=== PATIENT | female | born 1985 | race Two or more races ===

== ENCOUNTER 2020-08-10 11:14 | Emergency (ER) | payer MEDICAID, SELFPAY ==
[2020-08-10 11:27] VITALS: BP 113/65; PULSE 67; RESP 18; TEMP 36.4; O2SAT 99; BMI 27.4
--- NOTE | 2020-08-10 11:35 | CT_ITS ---
EXAMINATION: CT FACIAL BONES WITH CONTRAST CLINICAL INFORMATION: Left facial swelling. COMPARISON: None available. TECHNIQUE: Multidetector CT acquisition of the maxillofacial region is obtained following the administration of 85 mL of Omnipaque 350 intravenous contrast without complication. This CT examination was performed using dose optimization techniques as appropriate, variously including the following: *Automated exposure control *Adjustment of mA and/or kV according to patient size (this includes techniques or standardized protocols for targeted exams where dose is matched to indication/reason for exam; i.e. extremities or head) *Use of iterative reconstruction technique FINDINGS: Asymmetric enlargement and heterogeneous enhancement of accessory parotid tissue overlying the superficial aspect of the left masseter muscle contiguous with cellulitis extending into the left buccal space. There is also significant periapical lucency adjacent to the root of the left second maxillary premolar contiguous with buccal cortical erosion of the left maxillary ridge. The cellulitic changes in the left face are most likely secondary to a periapical abscess surrounding the left second maxillary premolar which can be correlated with physical exam. Possible secondary parotitis involving the accessory parotid tissue overlying the left masseter muscle. No drainable peripherally enhancing fluid collections within the face. There is also periapical lucency surrounding the mesial buccal root of the right first maxillary molar. TMJs are unremarkable. There is moderate mucosal thickening within the inferior aspect of the left maxillary sinus. The remaining paranasal sinuses and the mastoid air cells are clear. Nasal septum is nearly midline. Retropharyngeal course of the left cervical internal carotid artery. Partially imaged intracranial compartment is unremarkable. CT/CT facial bones w con IMPRESSION: Asymmetric enlargement and heterogeneous enhancement of accessory parotid tissue overlying the superficial aspect of the left masseter muscle contiguous with cellulitis extending into the left buccal space and remainder of the imaged left face. There is also significant periapical lucency adjacent to the root of the left second maxillary premolar contiguous with buccal cortical erosion of the left maxillary alveolar ridge. The cellulitic changes in the left face are most likely secondary to a periapical abscess surrounding the left second maxillary premolar which can be correlated with physical exam. Possible secondary parotitis involving the accessory parotid tissue overlying the left masseter muscle. No drainable peripherally enhancing fluid collections within the face.
--- NOTE | 2020-08-10 11:46 | ED_ITS ---
HPI - General Adult General Chief complaint: General Medical Stated complaint: face swollen Time Seen by Provider: 08/10/20 11:35 Source: patient Mode of arrival: ambulatory History of Present Illness HPI narrative: 34-year-old female with no significant past medical history presenting to the ED complaining of left-sided facial swelling and discomfort since last night. Denies fever, chills, ear pain, dental pain/issues, throat pain/swelling, difficulty swallowing, difficulty breathing, SOB, cough Onset (ago): day(s) Related Data Previous Rx's Medication Instructions Recorded clindamycin HCl 450 mg PO Q8H 10 Days #45 cap 08/10/20 Allergies Allergy/AdvReac Type Severity Reaction Status Date / Time No Known Allergies Allergy Verified 08/10/20 11:30 [No Known Allergies*] Review of Systems Review of Systems: Constitutional: No Weight loss, No Fever, No Chills ENT/Mouth: No Hearing loss, No Ear Pain, No Nasal Congestion,+ Sinus Pain, No Hoarseness, No sore throat, No Rhinorrhea, No Swallowing Difficulty Eyes: No Eye Pain, No Swelling, No Vision Changes Cardiovascular: No Chest Pain, No SOB Respiratory: No Cough Gastrointestinal: No Nausea, No Vomiting Skin: +facial swelling Yes all other systems are reviewed and are negative [facility] Past Medical History Attestation statement: The following information was validated with the patient. Medical History (Updated 08/10/20 @ 15:18 by MINDY Finn) No known health problems Social History Social History Advance Directives: No Advance Directives Information Provided: No Physical Exam Vital Signs: Vital Signs: Last Vital Signs Temp 97.5 F 08/10/20 11:27 Pulse 67 08/10/20 11:27 Resp 18 08/10/20 11:27 BP 113/65 08/10/20 11:27 Pulse Ox 99 08/10/20 11:27 Body Mass Index 27.4 Const: General: cooperative, healthy appearing and comfortable Orientation/consciousness: patient oriented x3 Limitations: no limitations HENMT: Other: Left-sided facial swelling noted with mild tenderness to palpation. No erythema/cellulitis. TMs WNL. Intraoral fair dentition noted, no appreciable dental abscess/cellulitis or gingivitis Head: Yes normal to inspection Ears: hearing grossly normal bilaterally and TM's normal bilaterally General nose exam: Normal external nose present and Normal nares present Face and sinus: Yes sinus tenderness (left) Mouth: Normal oral and palatal mucosa present Teeth and gingiva: fair dentition Throat: Yes posterior oropharynx normal, Yes uvula midline, No peritonsillar mass and No uvular edema Eyes: General: appearance normal, both eyes and all related structures EOM: EOMs intact bilaterally Neck: Neck: Yes normal visual inspection and Yes no meningeal signs Resp: Effort & Inspection: normal respiratory effort and no stridor Cardio: Rate: regular rate Skin: Rashes: no rashes Wounds: no wounds Neuro: General: patient oriented x3 and no meningeal signs Gait exam (Neuro): Normal gait present Extrem: General: Yes normal to inspection Course Course Course Narrative: * No leukocytosis, H&H stable CT facial bones w con IMPRESSION: Asymmetric enlargement and heterogeneous enhancement of accessory parotid tissue overlying the superficial aspect of the left masseter muscle contiguous with cellulitis extending into the left buccal space and remainder of the imaged left face. There is also significant periapical lucency adjacent to the root of the left second maxillary premolar contiguous with buccal cortical erosion of the left maxillary alveolar ridge. The cellulitic changes in the left face are most likely secondary to a periapical abscess surrounding the left second maxillary premolar which can be correlated with physical exam. Possible secondary parotitis involving the accessory parotid tissue overlying the left masseter muscle. No drainable peripherally enhancing fluid collections within the face >> patient given 1st dose of clindamycin today in the ED. No appreciable fluid collection noted. Discussed with patient length she needs to take antibiotics as prescribed, Tylenol/Motrin for pain/swelling and follow-up with a dentist in 2 days. Worrisome signs and symptoms and strict return precautions discussed. She verbalized understanding and feels safe for discharge home Medical Decision Making MDM Narrative Medical decision making narrative: 34-year-old female with no significant past medical history presenting to the ED complaining of left-sided facial swelling and discomfort since last night. On exam VSS, NAD/nontoxic appearing. Physical exam as above. Concern for dental abscess vs edema or sinusitis Plan: Labs facial CT, re-evaluate Lab Data Result diagrams: 08/10/20 12:25 08/10/20 12:26 Labs: Lab Results 08/10/20 08/10/20 08/10/20 Range/Units 12:25 12:25 12:26 WBC 8.8 (4.8-10.8) X10*3/uL RBC 3.74 L (4.20-5.50) X10*6/uL Hgb 10.9 L (12.0-16.0) g/dl Hct 30.2 L (37-47) % MCV 80.7 (80-98) fL MCH 29.1 (27.0-33.0) pg MCHC 36.1 H (31.0-35.0) g/dl RDW 16.0 (11.0-16.0) % Plt Count 335 (160-400) X10*3/uL MPV 9.5 (9.4-12.3) fL Immature Gran % (Auto) 0.2 (0.0-0.4) % Neut % (Auto) 68.9 (45-73) % Lymph % (Auto) 21.7 (20-40) % Ellsworth % (Auto) 7.4 (2-11) % Eos % (Auto) 1.2 (0-4) % Baso % (Auto) 0.6 (0-2) % Lymph # (Auto) 1.9 (1.2-4.9) X10*3/uL Ellsworth # (Auto) 0.7 (0.1-1.2) X10*3/uL Eos # (Auto) 0.1 (0.0-0.4) X10*3/uL Baso # (Auto) 0.1 (0.0-0.2) X10*3/uL Abs Immat Gran (auto) 0.02 (0.00-0.03) X10*3/uL Absolute Neuts (auto) 6.1 (2.0-8.3) X10*3/uL Absolute Nucleated RBC 0.000 (0.0-0.012) X10*3/uL Nucleated RBC % (auto) 0.0 (0.0-0.2) /100WBC Hold Blue Top SEE NOTE Sodium 139 (135-145) mmol/L Potassium 3.7 (3.3-5.1) mmol/l Chloride 107 (96-108) mmol/L Carbon Dioxide 24 (22-29) mmol/L Anion Gap 12 (12-20) BUN 8 L (9-16) mg/dL Creatinine 0.80 (0.5-1.4) mg/dL Estim Creat Clear Calc 102.2 Estimated GFR > 60 Random Glucose 90 (60-115) mg/dL Calcium 8.6 (8.4-10.2) mg/dL Discharge Plan Discharge Clinical Impression: Facial cellulitis Patient Disposition: Home, Self-Care Instructions: Cellulitis (ED) Additional Instructions: Your blood work is reassuring today in the emergency department however your CT scan shows cellulitis of your phase. This is most likely coming from an abscess around 1 of her molars. There is no area that can be drained at this time, you need to have very close follow-up with a dentist in the next 2 days. Clindamycin as an antibiotic, take as prescribed. In addition take Tylenol and Motrin every 4-6 hours for pain/swelling. If you at all develops fever, gera segudno is worsening, you have drainage from any of her teeth, have swelling in her mouth or difficulty swallowing return to the ED Prescriptions: New clindamycin HCl 300 mg capsule 450 mg PO Q8H 10 Days Qty: 45 RF: 0 Referrals: Jason Gavin DMD [Dentist] - 2 days Sheldon Flores DMD [Dentist] - 2 days Discharge Date/Time: 08/10/20 15:23
[2020-08-10 12:30] LABS: MANUAL DIFF FLAG NO
[2020-08-10 12:33] LABS: Basophils Absolute Auto 0.1 X10*3/uL (0.0-0.2); Basophils Percent Auto 0.6 % (0-2); Eosinophils Absolute Auto 0.1 X10*3/uL (0.0-0.4); Eosinophils Percent Auto 1.2 % (0-4); Hematocrit 30.2 % (37-47); Hemoglobin 10.9 g/dl (12.0-16.0); Imm Gran Abs Auto 0.02 X10*3/uL (0.00-0.03); Imm Gran Pct Auto 0.2 % (0.0-0.4); Lymphocytes Absolute Auto 1.9 X10*3/uL (1.2-4.9); Lymphocytes Percent Auto 21.7 % (20-40); Mean Corpuscular HGB Conc 36.1 g/dl (31.0-35.0); Mean Corpuscular Hemoglobin 29.1 pg (27.0-33.0); Mean Corpuscular Volume 80.7 fL (80-98); Mean Platelet Volume 9.5 fL (9.4-12.3); Monocytes Absolute Auto 0.7 X10*3/uL (0.1-1.2); Monocytes Percent Auto 7.4 % (2-11); Neutrophils Absolute Auto 6.1 X10*3/uL (2.0-8.3); Neutrophils Percent Auto 68.9 % (45-73); Platelet Count 335 X10*3/uL (160-400); Red Blood Count 3.74 X10*6/uL (4.20-5.50); White Blood Count 8.8 X10*3/uL (4.8-10.8)
[2020-08-10 12:57] LABS: Anion Gap 12 (12-20); Blood Urea Nitrogen 8 mg/dL (9-16); Calcium 8.6 mg/dL (8.4-10.2); Carbon Dioxide 24 mmol/L (22-29); Chloride 107 mmol/L (96-108); Creatinine Clr Calc Pharmacy 102.2; Estimated Glomerular Filt Rate > 60; Glucose Random 90 mg/dL (60-115); Potassium 3.7 mmol/l (3.3-5.1); Sodium 139 mmol/L (135-145)
[2020-08-10] MEDS: iohexoL 350 MG/ML 100 ML INFUS..BTL IV (13:51)
== END 2020-08-10 15:23 | disposition home or self-care (01) ==
PROVIDERS: Physician Assistant; Emergency Provider Internal Medicine; PCP Internal Medicine
DX: L03.211 Cellulitis of face (principal); Z79.899 Other long term (current) drug therapy
CPT/HCPCS: 36415; 70487; 80048; 85025; 96365; 99283; 99284; Q9967

== ENCOUNTER 2021-05-20 10:17 | Emergency (ER) | payer MEDICAID, SELFPAY ==
--- NOTE | ~2021-05-20 | XR_ITS ---
EXAMINATION: XR KNEE, LEFT CLINICAL INFORMATION: Posterior left knee pain, unable to bend. No trauma. COMPARISON: No similar priors. TECHNIQUE: Four views of the left knee. FINDINGS: No evidence of acute fractures or malalignment. No significant degenerative changes. No joint effusion or unexpected radiopaque foreign bodies within the soft tissues. XR/XR knee LT 4V IMPRESSION: Normal examination of the left knee.
[2021-05-20 10:27] VITALS: BP 115/62; PULSE 66; RESP 16; TEMP 36.1; O2SAT 100; BMI 29.9
--- NOTE | 2021-05-20 10:41 | ED_ITS ---
HPI - Extremity Problem General Chief complaint: Extremity Injury, Lower Stated complaint: lt knee pain Time Seen by Provider: 05/20/21 10:22 Source: patient Mode of arrival: ambulatory Limitations: no limitations History of Present Illness HPI Narrative: 35-year-old female presenting to the ED with complaints of atraumatic left knee pain at the posterior aspect for the past 4 days worse when she performs flexion and palpates the posterior aspect of her knee. Mild relief with straightening of the knee. Denies any fevers, chills, dizziness, headaches, neck pain/stiffness, chest pain or shortness of breath, dyspnea on exertion, orthopnea, palpitations, abdominal pain, back pain, dysuria, hematuria, lower extremity edema or calf tenderness, any falls or injuries, recent travel or sick contacts, recent surgical procedure, history of DVT or PE, history of PVD, recent illness, history of gout, or immobilization. MD Complaint: extremity pain Onset (ago): day(s) (4 days) Pain Consistency: constant Location: left and knee Quality: aching and constant Radiation: none Relieving factors: nothing Exacerbating factors: other (Flexion and palpation of the posterior aspect of the knee) Associated symptoms: denies other symptoms Related Data Previous Rx's Medication Instructions Recorded clindamycin HCl 300 mg capsule 450 mg PO Q8H 10 Days #45 cap 08/10/20 acetaminophen 300 mg-codeine 30 mg 1 tab PO Q8H PRN #14 tab 05/20/21 tablet ibuprofen 800 mg tablet 800 mg PO Q8H PRN #14 tab 05/20/21 Allergies Allergy/AdvReac Type Severity Reaction Status Date / Time No Known Allergies Allergy Verified 08/10/20 11:30 [No Known Allergies*] Review of Systems Review of Systems: Constitutional : No Weight loss, No Fever, No Chills, No Night Sweats, No Fatigue, No Malaise ENT/Mouth : No Hearing loss, No Ear Pain, No Nasal Congestion, No Sinus Pain, No Hoarseness, No sore throat, No Rhinorrhea, No Swallowing Difficulty Eyes: No Eye Pain, No Swelling, No Redness, No Foreign Body, No Discharge, No Vision Changes Cardiovascular : No Chest Pain, No SOB, No Dyspnea on Exertion, No Orthopnea, No Edema, No Palpitations Respiratory : No Cough, No Sputum, No Wheezing, No Smoke Exposure, No Dyspnea Gastrointestinal : No Nausea, No Vomiting, No Diarrhea, No Constipation, No abdominal Pain, No Hematochezia, No Melena Genitourinary : no irregular bleeding, No Dysuria, No Urinary Frequency, No Hematuria, No Urinary Incontinence, No Urgency, No Flank Pain, No Urinary Flow Changes, No Hesitancy Musculoskeletal : +left knee joint pain, No Myalgias, No Joint Swelling Skin : No Skin Lesions, No rash Neuro : No Weakness, No Numbness, No Paresthesias, No Loss of Consciousness, No Dizziness, No Headache Psych : No Anxiety/Panic, No Depression, No SI/HI/AH/VH, No Social Issues, Heme/Lymph: No Bruising, No Bleeding,No Lymphadenopathy Endocrine : No Polyuria, No Polydipsia, No Temperature Intolerance Yes all other systems are reviewed and are negative [facility] Past Medical History Attestation statement: The following information was validated with the patient. Medical History No known health problems Social History Social History Advance Directives: No Advance Directives Information Provided: No Patient : No Physical Exam Vital Signs: Vital Signs: Last Vital Signs Temp 97.0 F 05/20/21 10:27 Pulse 66 05/20/21 10:27 Resp 16 05/20/21 10:27 BP 115/62 05/20/21 10:27 Pulse Ox 100 05/20/21 10:27 Body Mass Index 29.9 vital signs have been reviewed as normal and appeared to be correct. Blood pressure normal Heart rate normal. Respiration rate normal. Temperature normal. Oxygen saturation normal. Appearance: Alert. Oriented X3. No acute distress. Head: Normal external exam. Normocephalic. Atraumatic. Eyes: PERRLA. EOMI. Conjunctiva and sclera normal. Eyelids normal. ENT: Pharynx normal. Uvula midline. Moist mucous membranes. Neck: Normal inspection. Neck supple. FROM. CVS: Normal heart rate and rhythm. Respiratory: No respiratory distress. Painless inspiration. Skin: Skin warm and dry. Normal skin color. Normal skin turgor. No rashes/lesions/lacerations noted. Extremities: Patient with tenderness to palpation of the left knee at the posterior aspect. No point tenderness is noted. No obvious ligamentous or tendon injury/laxity noted on my exam. Patient has full range of motion althoug h she has pain with flexion. No lower extremity edema or calf tenderness is noted. No signs of infection noted. Otherwise all other Extremities exhibit normal range of motion and nontender. Neuro: Oriented X 3. No motor deficit. No sensory deficit. Reflexes normal. Normal steady gait. No focal neuro deficits noted. Vascular: + radial pulses/+ 2 distal pedal pulses/+2 dorsalis pedis b/l. Normal cap refill. No cyanosis noted to upper extremity nails and lower extremity toes nails. Course Course Course Narrative: 10:40am - 35-year-old female presenting to the ED with complaints of atraumatic left knee pain at the posterior aspect for the past 4 days worse when she performs flexion and palpates the posterior aspect of her knee. Mild relief with straightening of the knee. On exam patient has tenderness palpation to the posterior knee aspect. No obvious ligamentous or tendon injury. No signs of infection. No lower extremity edema or calf tenderness is noted. Therefore at this time x-ray will be ordered of the left knee will re-evaluate. Reevaluation(s) Reevaluation #1: Left knee x-ray negative for any acute processes. We will place an Nixon wrap. Treat symptomatically. Instructed follow-up with her PCP for physical therapy referral or to call Orthopedic if her symptoms persist for longer than 2-3 weeks for possible outpatient MRI. Patient understands agrees with this plan. Time: 11:24 MDM - Extremity (Nontraumatic) Medical Records Attestation: I reviewed the patient's medical records. Imaging Data Left knee x-ray: Attestation: I personally reviewed and interpreted this imaging study as follows: Radiologist's impression: FINDINGS: No evidence of acute fractures or malalignment. No significant degenerative changes. No joint effusion or unexpected radiopaque foreign bodies within the soft tissues.? XR/XR knee LT 4V IMPRESSION: Normal examination of the left knee. Procedures Orthopedic Splinting/Casting Injury #1: Side: left Upper Extremity Immobilizer: Nixon wrap Lower Extremity Injury Location: knee Discharge Plan Discharge Clinical Impression: Strain of left knee Patient Disposition: Home, Self-Care Instructions: Knee Sprain (ED), [place] (ED), Knee Pain (ED) Prescriptions: New ibuprofen 800 mg tablet 800 mg PO Q8H PRN (Reason: pain) Qty: 14 RF: 0 acetaminophen-codeine 300-30 mg tablet 1 tab PO Q8H PRN (Reason: pain) Qty: 14 RF: 0 No Action clindamycin HCl 300 mg capsule 450 mg PO Q8H 10 Days Qty: 45 RF: 0 Referrals: Odalys Amador MD [Primary Care Provider] - 2 days Bruno Brandt MD [Physician] - 2 days Stand Alone Forms: Work/School Release Print Language: Welsh
== END 2021-05-20 11:44 | disposition home or self-care (01) ==
PROVIDERS: Emergency Provider Emergency Medicine Emergency Medical Services; PCP Internal Medicine
DX: S83.92XA Sprain of unspecified site of left knee, initial encounter (principal); M25.562 Pain in left knee; X58.XXXA Exposure to other specified factors, initial encounter; Y93.9 Activity, unspecified; Y92.9 Unspecified place or not applicable; Y99.9 Unspecified external cause status; Z79.899 Other long term (current) drug therapy
CPT/HCPCS: 29505; 73564; 99283

== ENCOUNTER 2021-09-04 12:54 | Outpatient (REF) | payer MEDICAID, SELFPAY ==
--- NOTE | ~2021-09-04 | US_ITS ---
EXAMINATION: ULTRASOUND EXTREMITY NONVASCULAR CLINICAL INFORMATION: Pain in left knee. Rule out Soliz's cyst. COMPARISON: None TECHNIQUE: Doppler color and grayscale evaluation of the soft tissues of the left popliteal fossa FINDINGS: No Soliz's cyst is seen. The popliteal vein and artery are normal in caliber. The popliteal vein compresses without evidence of popliteal vein DVT. US/US extremity nonvascular duarte IMPRESSION: No Soliz's cyst seen.
== END 2021-09-04 12:55 | disposition home or self-care (01) ==
LOC: HO.US 12:54
PROVIDERS: PCP Internal Medicine; Visit Provider Internal Medicine
DX: M25.562 Pain in left knee (principal)
CPT/HCPCS: 76882

== ENCOUNTER 2022-12-02 11:47 | Outpatient (REF) | payer MEDICAID, SELFPAY ==
--- NOTE | ~2022-12-02 | XR_ITS ---
EXAMINATION: XR KNEE, LEFT CLINICAL INFORMATION: Chronic left knee pain COMPARISON: None available. TECHNIQUE: Four views of the left knee. FINDINGS: The tricompartment joint space is normal. No visible acute fracture or dislocation seen.. No bony erosive changes. The soft tissues are normal. XR/XR knee LT 4V IMPRESSION: Unremarkable left knee exam..
== END 2022-12-02 11:48 | disposition home or self-care (01) ==
LOC: HO.XRAY 11:47
PROVIDERS: PCP Internal Medicine; Visit Provider Internal Medicine
DX: M25.562 Pain in left knee (principal)
CPT/HCPCS: 73564

== ENCOUNTER 2022-12-19 20:00 | Emergency (ER) | payer MEDICAID, SELFPAY ==
--- NOTE | ~2022-12-19 | XR_ITS ---
EXAMINATION: XR KNEE, LEFT CLINICAL INFORMATION: Fall and pain COMPARISON: 12/02/2022 TECHNIQUE: Two views of the left knee. FINDINGS: Bones and soft tissues are normal. No fracture or joint effusion. Alignment is anatomic. Joint spaces are well maintained. No abnormal soft tissue calcification. XR/XR knee LT 2V IMPRESSION: Normal left knee.
[2022-12-19 20:05] VITALS: BP 106/60; PULSE 72; RESP 16; TEMP 36.3; O2SAT 99; BMI 32.4
--- NOTE | 2022-12-19 20:06 | ED.GENADULT ---
HPI - General Adult General Chief complaint: Extremity Injury, Lower Stated complaint: L knee pain from fall Time Seen by Provider: 12/19/22 21:42 Source: patient Mode of arrival: ambulatory Limitations: no limitations History of Present Illness HPI narrative: Patient comes to the emergency room complaining of left-sided knee pain following a fall. Patient states that her knee gave out in the shower. Patient has been ambulating since then. Denies any other injuries. Related Data Previous Rx's Medication Instructions Recorded clindamycin HCl 300 mg capsule 450 mg PO Q8H 10 days #45 caps 08/10/20 acetaminophen 300 mg-codeine 30 mg 1 tab PO Q8H PRN pain #14 tabs 05/20/21 tablet ibuprofen 800 mg tablet 800 mg PO Q8H PRN pain #14 tabs 05/20/21 Allergies Allergy/AdvReac Type Severity Reaction Status Date / Time No Known Allergies Allergy Verified 12/19/22 20:05 [No Known Allergies*] Review of Systems Review of Systems: Constitutional : No Weight loss, No Fever, No Chills, No Night Sweats, No Fatigue, No Malaise ENT/Mouth : No Hearing loss, No Ear Pain, No Nasal Congestion, No Sinus Pain, No Hoarseness, No sore throat, No Rhinorrhea, No Swallowing Difficulty Eyes: No Eye Pain, No Swelling, No Redness, No Foreign Body, No Discharge, No Vision Changes Cardiovascular : No Chest Pain, No SOB, No Dyspnea on Exertion, No Orthopnea, No Edema, No Palpitations Respiratory : No Cough, No Sputum, No Wheezing, No Smoke Exposure, No Dyspnea Gastrointestinal : No Nausea, No Vomiting, No Diarrhea, No Constipation, No abdominal Pain, No Hematochezia, No Melena Genitourinary : no irregular bleeding, No Dysuria, No Urinary Frequency, No Hematuria, No Urinary Incontinence, No Urgency, No Flank Pain, No Urinary Flow Changes, No Hesitancy Musculoskeletal : Frequent knee buckling cough No Myalgias, No Joint Swelling Skin : No Skin Lesions, No rash Neuro : No Weakness, No Numbness, No Paresthesias, No Loss of Consciousness, No Dizziness, No Headache Psych : No Anxiety/Panic, No Depression, No SI/HI/AH/VH, No Social Issues, Heme/Lymph: No Bruising, No Bleeding,No Lymphadenopathy Endocrine : No Polyuria, No Polydipsia, No Temperature Intolerance PMFSH Past Medical History Medical History No known health problems Social History Social History Advance Directives: No Advance Directives Information Provided: No Physical Exam ED Vital Signs: Vital Signs - 24 hr 12/19/22 20:05 Temperature 97.4 F Pulse Rate 72 Respiratory Rate 16 Blood Pressure 106/60 Pulse Oximetry 99 Oxygen Delivery Method Room Air BMI result Body Mass Index 32.4 Const Other: Appearance: Alert. Oriented X3. No acute distress. Eyes: Pupils equal, round and reactive to light. ENT: Pharynx normal. Neck: Normal inspection. Neck supple. No lymph nodes noted. No crepitus CVS: Normal heart rate and rhythm. Pulses normal. Normal S1 and S2 Respiratory: No respiratory distress. Breath sounds normal. No Wheezing. No rales Abdomen: Soft and nontender. No rigidity. No distention. Skin: Skin warm and dry. Normal skin color. Normal skin turgor. Extremities: No lower extremity edema. No Lacerations. No Rash Neuro: Oriented X 3. No motor deficit. No sensory deficit. Moving all extremities. No slurred speech. CN 2 through 12 grossly intact Psych: calm, cooperative, normal affect Course Course Course Narrative: RME performed by Rachel Laura PA-C. Patient is a 37 year old assigned female at presenting to the emergency department with left knee pain. Imaging ordered. Patient placed back in the waiting room pending room availability and results. Medical Decision Making Medical Decision Making MDM Narrative: -my interpretation of x-ray of the knee, normal alignment, no fracture -patient's physical exam is normal -discussed with the patient that if she has any discomfort she can take Tylenol ibuprofen. If the knee keeps buckling, she can follow-up with orthopedics Radiology Impression Discussion of test interpretation with radiology: I have reviewed the radiologist's reading. Radiologist Impression: FINDINGS: Bones and soft tissues are normal. No fracture or joint effusion. Alignment is anatomic. Joint spaces are well maintained. No abnormal soft tissue calcification.? XR/XR knee LT 2V IMPRESSION: Normal left knee. Discharge Plan Discharge Clinical Impression: Knee buckling Patient Disposition: Home, Self-Care Instructions: Arthralgia (ED) Additional Instructions: Please follow-up with your primary care physician tomorrow. If you have any worsening or new symptoms, please return to the emergency room or call 911 Prescriptions: No Action clindamycin HCl 300 mg capsule 450 mg PO Q8H 10 Days Qty: 45 0RF ibuprofen 800 mg tablet 800 mg PO Q8H PRN (Reason: pain) Qty: 14 0RF acetaminophen-codeine 300-30 mg tablet 1 tab PO Q8H PRN (Reason: pain) Qty: 14 0RF
== END 2022-12-19 22:39 | disposition home or self-care (01) ==
PROVIDERS: Emergency Provider Emergency Medicine; PCP Internal Medicine
DX: M25.562 Pain in left knee (principal); M23.52 Chronic instability of knee, left knee
CPT/HCPCS: 73560; 99283

== ENCOUNTER 2023-06-28 23:40 | Emergency (ER) | payer MEDICAID, SELFPAY ==
[2023-06-28 23:45] VITALS: BP 109/72; PULSE 69; RESP 20; TEMP 36.1; O2SAT 98; BMI 33.8
--- NOTE | 2023-06-29 00:47 | ED_ITS ---
HPI - Skin/Abscess/Foreign Bdy General Chief complaint: Skin/Abscess/Foreign Body Stated complaint: ?Allergic reaction Time Seen by Provider: 06/29/23 00:47 Source: patient Mode of arrival: ambulatory Limitations: no limitations History of Present Illness MD complaint: rash Onset (ago): day(s) (2) Tetanus up to date: yes Location: face Severity: moderate Quality: pruritic Relieving factors: none Exacerbating factors: none Context: other (unknown) Associated symptoms: denies other symptoms Treatments prior to arrival: none Related Data Previous Rx's Medication Instructions Recorded clindamycin HCl 300 mg capsule 450 mg (1.5 x 300 mg) PO Q8H 10 08/10/20 days #45 caps acetaminophen 300 mg-codeine 30 mg 1 tab PO Q8H PRN pain #14 tabs 05/20/21 tablet ibuprofen 800 mg tablet 800 mg PO Q8H PRN pain #14 tabs 05/20/21 cetirizine 10 mg tablet 10 mg PO DAILY PRN allergy 06/29/23 symptoms #30 tabs prednisone 20 mg tablet 40 mg (2 x 20 mg) PO DAILY 5 days 06/29/23 #10 tabs Allergies Allergy/AdvReac Type Severity Reaction Status Date / Time No Known Allergies Allergy Verified 06/28/23 23:49 [No Known Allergies*] Review of Systems Review of Systems: Constitutional : No Fever, No Chills ENT/Mouth : no oral swelling, No Hoarseness, No Swallowing Difficulty Eyes: No Eye Pain, No Swelling, No Redness Cardiovascular : No Chest Pain, No SOB Respiratory : No Cough, No Sputum, No Wheezing, No Smoke Exposure, No Dyspnea Gastrointestinal : No Nausea, No Vomiting, No Diarrhea, No abdominal Pain Genitourinary : No Dysuria, No Urinary Frequency, No Hematuria Musculoskeletal : No joint pain, No Myalgias, No Joint Swelling Skin : No Skin Lesions, positive rash Neuro : No Weakness, No Numbness, No Headache Psych : No Anxiety/Panic, No Depression Heme/Lymph: No Bruising, No Lymphadenopathy Endocrine : No Polyuria, No Polydipsia All other systems reviewed and are negative [facility] Past Medical History Medical History No known health problems Social History Social History (Updated 06/29/23 @ 00:50 by Trinity Dickson, DO) Patient Tobacco Use Status: Never used Tobacco Physical Exam Vital Signs: Vital Signs: Last Vital Signs Temp 97.0 F 06/28/23 23:45 Pulse 69 06/28/23 23:45 Resp 20 06/28/23 23:45 BP 109/72 06/28/23 23:45 Pulse Ox 98 06/28/23 23:45 O2 Del Method Room Air 06/28/23 23:45 BMI result Body Mass Index 33.8 Appearance: Alert. Oriented X3. No acute distress. Eyes: Pupils equal, round and reactive to light. ENT: Pharynx normal. face has raised areas and bumps consistent with contact dermatitis no signs of infection Neck: Normal inspection. Neck supple. CVS: Normal heart rate and rhythm. Pulses normal. Respiratory: No respiratory distress. Abdomen: Soft and nontender. Skin: Skin warm and dry. Normal skin color. Extremities: No lower extremity edema. Neuro: Oriented X 3. No motor deficit. No sensory deficit. Medical Decision Making Medical Decision Making MDM Narrative: 37 yo female no sig PMH here with 2 days of itching facial rash at this time no resp issues no oral swelling cannot think of a trigger and has signs of a dermatitis will give zyrtec and prednisone - DC to PCP and to monitor exposures. Differential Diagnosis Differential Diagnoses: The differential diagnosis associated with the presentation includes dermatitis, allergic reaction Prescription Management I considered prescription management with: Other Discharge Plan Discharge Clinical Impression: Contact dermatitis Qualifiers: Contact dermatitis type: allergic Contact dermatitis trigger: unspecified trigger Qualified Code(s): L23.9 - Allergic contact dermatitis, unspecified cause Patient Disposition: Home, Self-Care Instructions: Contact Dermatitis (ED) Additional Instructions: return for worsening swelling itching or difficulty breathing Prescriptions: New prednisone 20 mg tablet 40 mg PO DAILY 5 Days Qty: 10 0RF cetirizine 10 mg tablet 10 mg PO DAILY PRN (Reason: allergy symptoms) Qty: 30 0RF No Action clindamycin HCl 300 mg capsule 450 mg PO Q8H 10 Days Qty: 45 0RF ibuprofen 800 mg tablet 800 mg PO Q8H PRN (Reason: pain) Qty: 14 0RF acetaminophen-codeine 300-30 mg tablet 1 tab PO Q8H PRN (Reason: pain) Qty: 14 0RF Print Language: Georgian
[2023-06-29] MEDS: hydrOXYzine HCL 50 MG TABLET PO (00:51)
== END 2023-06-29 00:56 | disposition home or self-care (01) ==
PROVIDERS: Emergency Provider Emergency Medicine; PCP Internal Medicine
DX: L23.9 Allergic contact dermatitis, unspecified cause (principal)
CPT/HCPCS: 99283; 99284

== ENCOUNTER 2023-07-23 12:57 | Outpatient (REF) | payer MEDICAID, SELFPAY ==
[2023-07-29 17:34] LABS: Immunoglobulin E 18 kU/L (<OR=114)
== END 2023-07-23 12:58 | disposition home or self-care (01) ==
LOC: HO.HHCL 12:57
PROVIDERS: Visit Provider Internal Medicine
DX: L30.9 Dermatitis, unspecified (principal)
CPT/HCPCS: 36415; 82785; 84443; 85025

== ENCOUNTER 2023-12-23 09:57 | Outpatient (REF) | payer MEDICAID, SELFPAY ==
[2023-12-23 11:25] LABS: MANUAL DIFF FLAG NO
[2023-12-23 11:31] LABS: Basophils Absolute Auto 0.1 X10*3/uL (0.0-0.2); Basophils Percent Auto 0.6 % (0-2); Eosinophils Absolute Auto 0.3 X10*3/uL (0.0-0.4); Eosinophils Percent Auto 3.3 % (0-4); Hematocrit 32.3 % (37.0-47.0); Imm Gran Abs Auto 0.03 X10*3/uL (0.00-0.03); Imm Gran Pct Auto 0.4 % (0.0-0.4); Lymphocytes Absolute Auto 0.8 X10*3/uL (1.2-4.9); Lymphocytes Percent Auto 9.8 % (20-40); Mean Corpuscular HGB Conc 37.2 g/dl (31.0-35.0); Mean Corpuscular Hemoglobin 31.8 pg (27.0-33.0); Mean Corpuscular Volume 85.7 fL (80.0-98.0); Mean Platelet Volume 9.8 fL (9.4-12.3); Monocytes Absolute Auto 0.4 X10*3/uL (0.1-1.2); Monocytes Percent Auto 4.7 % (2-11); Neutrophils Absolute Auto 6.4 x10*3/uL (2.0-8.3); Neutrophils Percent Auto 81.2 % (45-73); Platelet Count 304 X10*3/uL (160-400); Red Blood Count 3.77 X10*6/uL (4.20-5.50); Red Cell Distribution Width 13.9 % (11.0-16.0); White Blood Count 7.8 X10*3/uL (4.8-10.8)
[2023-12-23 12:01] LABS: Ferritin 22 ng/mL (10-122)
== END 2023-12-23 09:58 | disposition home or self-care (01) ==
LOC: HO.HHCL 09:57
PROVIDERS: Visit Provider Internal Medicine
DX: D50.0 Iron deficiency anemia secondary to blood loss (chronic) (principal)
CPT/HCPCS: 36415; 82728; 85025

== ENCOUNTER 2024-04-26 14:00 | Outpatient (RCR) | payer MEDICAID, SELFPAY ==
--- NOTE | 2024-04-14 10:47 | MHC.PT.EP ---
[facility] [place] Office [place] Office [place] Office [address] [phone] F: [phone] F: [phone] F: [phone] F: [phone] Physical Therapy Plan of Care Date of Evaluation: 04/14/24 Date of Surgery: NA Diagnosis: Chronic pain in L knee Assessment: Hussain is a 38 year old female who is referred to PT for chronic pain in L knee . She reports of having pain in L shoulder for about 2-3 years. She denies any trauma or falls. On PT examination she presents with TTP over medial joint close to patella and lateral joint posteriorly and inferior pole of patella, 4-9/10 pain with standing, walking, sleeping, decreased L knee ROM, decreased L LE strength, altered posture and gait. She is independent with ADLS but has pain with standing and walking activities and needs to take frequent rest breaks. 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 She would benefit from skilled PT to address the aforementioned impairments and improve tolerance to functional activities. Frequency and Duration: The patient will be seen 2/week for 5 weeks Short Term Goals: 1. Pt will have 50% decrease in pain which will enable her to sleep through the night in 2 weeks. 2. Pt will be able to move her L knee through full range of motion without pain which will enable her to negotiate stairs without pain in 3 weeks Hand Tier Goals: 1. Pt will demonstrate an increase in muscle strength by 1 grade which will enable her to stand and walking without pain in 5 weeks. 2. Pt will be independent with all HEP for symptom management and maintenance following d/c in 5 weeks. Treatment Plan: Modalities to reduce pain, spasms and effusion. Manual therapy to restore motion and function. Therapeutic exercise to improve strength and flexibility. Neuromuscular re-education for posture and balance. Therapeutic activities to return to functional activities of daily living. Electronically signed by: Riya Thrasher PT DPT Please sign and return to therapist. Thank you for your referral.
--- NOTE | 2024-05-08 14:49 | MHC.PT.DC ---
[facility] [place] Office [place] Office [place] Office [address] Josue Garcia [address] [phone] F: [phone] F: [phone] F: [phone] F: [phone] Physical Therapy Discharge Report Diagnosis: Chronic pain in L knee Date of Surgery: NA Date of Evaluation: 04/14/24 Date of Discharge: 05/08/24 Treatments to Date: 2 Cancellations to Date: 0 No Shows to Date: 0 Discharge Status: Improved Function Visit Non-compliance Discharge Summary: Hussain magdaleno showed 3 appointments after her 2nd visit. She is therefore being d/c from PT for non compliance. Electronically signed by: Riya Thrasher PT DPT Please sign and return to therapist. Thank you for your referral.
== END 2024-05-08 14:49 | disposition home or self-care (01) ==
LOC: HO.PT 14:00
PROVIDERS: PCP Internal Medicine; Visit Provider Internal Medicine
DX: M25.562 Pain in left knee (principal); G89.29 Other chronic pain
CPT/HCPCS: 97110; 97140; 97161

== ENCOUNTER 2024-05-15 18:46 | Outpatient (REF) | payer MEDICAID, SELFPAY ==
[2024-05-16 05:22] LABS: CT PCR NOT DETECTED (Not Detect.); NG PCR NOT DETECTED (Not Detect.)
[2024-05-16 10:53] LABS: Bacterial Vaginosis PCR POSITIVE (Negative); Candida Group PCR NOT DETECTED (Not Detect); Candida glab krusei PCR NOT DETECTED (Not Detect); Trichomonas vaginalis PCR NOT DETECTED (Not Detect)
[2024-05-19 11:13] LABS: HPV mRNA E6/E7 rflx Not Detected
== END 2024-05-15 18:47 | disposition home or self-care (01) ==
LOC: HO.HHCLNP 18:46
PROVIDERS: Visit Provider Internal Medicine
DX: Z01.419 Encounter for gynecological examination (general) (routine) without abnormal findings (principal)
CPT/HCPCS: 0352U; 36415; 87491; 87591; 87624; 88175

== ENCOUNTER 2024-07-25 10:21 | Outpatient (REF) | payer MEDICAID, SELFPAY ==
--- NOTE | ~2024-07-25 | XR_ITS ---
EXAMINATION: XR WRIST, RIGHT CLINICAL INFORMATION: 1-month duration of right wrist pain COMPARISON: None available. TECHNIQUE: PA, lateral, and oblique views of the right wrist. FINDINGS: No acute cortical disruption or gross malalignment. No lytic or blastic lesions. No subcutaneous emphysema. XR/XR wrist RT min 3V IMPRESSION: No acute fracture or dislocation. Electronically signed by: Jacobo Stanton MD 07/25/2024 10:58 AM JOSE
[2024-07-25 11:42] LABS: MANUAL DIFF FLAG NO
[2024-07-25 11:44] LABS: Basophils Absolute Auto 0.1 X10*3/uL (0.0-0.2); Basophils Percent Auto 0.8 % (0-2); Eosinophils Absolute Auto 0.1 X10*3/uL (0.0-0.4); Hematocrit 30.3 % (37.0-47.0); Hemoglobin 11.1 g/dl (12.0-16.0); Imm Gran Abs Auto 0.02 X10*3/uL (0.00-0.03); Imm Gran Pct Auto 0.3 % (0.0-0.4); Lymphocytes Absolute Auto 1.9 X10*3/uL (1.2-4.9); Lymphocytes Percent Auto 28.8 % (20-40); Mean Corpuscular HGB Conc 36.6 g/dl (31.0-35.0); Mean Corpuscular Hemoglobin 29.7 pg (27.0-33.0); Mean Platelet Volume 9.8 fL (9.4-12.3); Monocytes Absolute Auto 0.6 X10*3/uL (0.1-1.2); Monocytes Percent Auto 8.5 % (2-11); Neutrophils Absolute Auto 3.8 x10*3/uL (2.0-8.3); Neutrophils Percent Auto 59.6 % (45-73); Platelet Count 342 X10*3/uL (160-400); Red Blood Count 3.74 X10*6/uL (4.20-5.50); Red Cell Distribution Width 14.4 % (11.0-16.0); White Blood Count 6.5 X10*3/uL (4.8-10.8)
[2024-07-25 12:43] LABS: HIV AB/AG Nonreactive (Nonreactive); HIV Num 1 0.07 S/CO (0.00-0.99)
[2024-07-25 12:44] LABS: Alanine Aminotransferase 27 U/L (0-31); Albumin Level 4.1 g/dL (3.5-5.0); Alkaline Phosphatase 104 U/L (39-117); Anion Gap 6 (12-20); Aspartate Amino Transferase 24 U/L (5-31); Bilirubin Total 0.9 mg/dL (0.0-1.0); Blood Urea Nitrogen 7 mg/dL (9-16); Carbon Dioxide 27 mmol/L (22-29); Chloride 110 mmol/L (96-108); Estimated Glomerular Filt Rate > 60; Glucose Random 79 mg/dL (60-115); Potassium 4.1 mmol/L (3.3-5.1); Sodium 139 mmol/L (135-145); Total Protein 7.5 g/dL (6.5-8.0)
[2024-07-25 12:47] LABS: Syphilis Screen Nonreactive (Nonreactive)
[2024-07-25 13:04] LABS: TSH reflex Free T4 1.04 uIU/mL (0.32-4.0)
== END 2024-07-25 10:22 | disposition home or self-care (01) ==
LOC: HO.HHCL 10:21
PROVIDERS: Internal Medicine; Visit Provider Internal Medicine
DX: R42 Dizziness and giddiness (principal); R00.2 Palpitations; Z11.3 Encounter for screening for infections with a predominantly sexual mode of transmission; M25.531 Pain in right wrist
CPT/HCPCS: 36415; 73110; 80053; 84443; 85025; 86780; 87389

== ENCOUNTER → 2024-07-25 10:35 | Outpatient (BNV) | payer MEDICAID, SELFPAY | PROVIDERS: Visit Provider Radiology Diagnostic Radiology | DX: M25.531 Pain in right wrist (principal) | CPT/HCPCS: 73110 ==

== ENCOUNTER → 2024-07-26 09:43 | Outpatient (REF) | payer MEDICAID, SELFPAY | LOC: HO.CARD 09:43 | PROVIDERS: Visit Provider Internal Medicine | DX: R00.2 Palpitations (principal); R00.1 Bradycardia, unspecified | CPT/HCPCS: 93225 ==

== ENCOUNTER → 2024-07-26 09:47 | Outpatient (BNV) | payer MEDICAID, SELFPAY | PROVIDERS: Visit Provider Internal Medicine Cardiovascular Disease | DX: I49.3 Ventricular premature depolarization (principal) | CPT/HCPCS: 93227 ==

== ENCOUNTER 2024-08-08 06:16 | Outpatient (REF) | payer MEDICAID, SELFPAY ==
--- NOTE | 2024-08-08 | EMG_ITS ---
Right median and ulnar motor and sensory studies were performed. Right radial sensory and median and lateral antecubital brachial sensory studies were performed and paraspinal muscles were tested with a needle. IMPRESSION: Mild right median neuropathy across carpal tunnel. MD ANNALEE Moore/TAMRA / [id number]
== END 2024-08-08 06:17 | disposition home or self-care (01) ==
LOC: HO.NEURO 06:16
PROVIDERS: PCP Internal Medicine; Visit Provider Family Medicine
DX: M25.531 Pain in right wrist (principal)
CPT/HCPCS: 95886; 95910

== ENCOUNTER 2024-09-13 10:25 | Outpatient (AMB) | payer MEDICAID, SELFPAY ==
--- NOTE | 2024-09-13 10:59 | MHC.OFFVIS ---
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 EMG done 08/11/24. States her CTS come and goes everyday. IMPRESSION: Mild right median neuropathy across carpal tunnel. 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 EMG done 08/11/24. States her CTS come and goes everyday. IMPRESSION: Mild right median neuropathy across carpal tunnel. 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 Good APB muscle firing and good finger cross. Vascular: Capillary refill brisk. ROM: Patient can make a fist and extend all their digits. Skin: No lacerations or abrasions noted. General: No ecchymosis. No erythema or evidence of infection. Assessment & Plan Assessment & Plan (1) Right carpal tunnel syndrome: Code(s): G56.01 - Carpal tunnel syndrome, right upper limb Category: Medical Plan 1. Carpal tunnel syndrome, right Intermittent, daily, worse at night I educated the patient about the condition. I discussed both operative and nonoperative treatment options. The patient would like to proceed with surgery. The risks and benefits of operative treatment were discussed with the patient and the patient wishes to proceed with surgery. These risks include, but are not limited to, risk of damage to blood vessels, nerves, tendons, infection, recurrence, incomplete relief of preoperative symptoms, persistent pain, possible need for further surgery, and the risks associated with regional blocks and/or anesthesia. Plan is to take the patient to the operating room at some point in the next few weeks for the following procedures: 1. Right carpal tunnel release under local All of the preoperative paperwork including the consent was discussed today. All of the patient's questions were answered in the clinic today. The patient understands that they will be in contact with our surgical garment inspector to discuss scheduling their procedure. Patient denies diabetes, blood thinners, asthma, heart issues, lung issues, kidney issues, or current smoking. Medications: Discontinued clindamycin HCl Discontinued Reason: Patient Completed Course 450 mg (1.5 x 300 mg) PO Q8H 10 days 45 caps 0RF prednisone Discontinued Reason: Patient Completed Course 40 mg (2 x 20 mg) PO DAILY 5 days 10 tabs 0RF Coding Level of Care Code New Pt Level 4 (42082) Diagnoses Right carpal tunnel syndrome G56.01
[2024-09-13 11:00] VITALS: BMI 31.6
--- OUTSIDE RECORDS SUMMARY | 2024-09-13 12:45 | XMS_ITS | Clinical Summary ---
Author Organization [facility] Address [address] [place] [address] Care Team Providers Care Heating Systems Installer Name Role Phone Unavailable Primary Care Provider Unavailabl e Social History Tobacco Use Types Packs/Day Years Used Date Smoking Tobacco: Never Assessed Sex and Gender Information Value Date Recorded Sex Assigned at Not on file Gender Identity Not on file Sexual Orientation Not on file Last Filed Vital Signs Vital Sign Reading Time Taken Comments Blood Pressure 116/56 08/03/2012 1:09 PM EST Pulse 100 08/03/2012 1:09 PM EST Temperature - - Respiratory Rate - - Oxygen Saturation - - Inhaled Oxygen Concentration - - Weight 61.8 kg (136 lb 3.9 oz) 08/03/2012 1:09 P M EST Height 165.1 cm (5' 5 ) 08/03/2012 1:09 PM EST Body Mass Index 22.67 08/03/2012 1:09 PM EST Plan of Treatment Health Maintenance Due Date Last Done Comments Hepatitis C Virus Screening 1987 HIV Screening 09/17/2000 DTaP/Tdap/Td Vaccines (1 - Tdap) 09/17/2006 Hepatitis B Vaccines (1 of 3 - 19+ 3-dose series) 09/17/2006 COVID-19 Vaccine (2023-2 5 season) 2024 HPV Vaccines Aged Out No longer eligi ble based on patient's age to complete this topic Pneumococcal Vaccine: Pediat diogo (0-5 Years) and At-Risk Patients (6 to 49 Years) Aged Out No longer eligible b ased on patient's age to complete this topic
--- OUTSIDE RECORDS SUMMARY | 2024-09-13 12:45 | XMS_ITS | Encounter Summary ---
Author Organization [employer] Address [address] [facility] 7t [place] [address] Care Team Providers Care Scientist Engineer Name Role Phone Odalys Amador MD Primary Care Provider + Encounter Details Date Type Department Care Team (Late st Contact Info) Description 07/25/2024 Orders Only [facility] [address] [place], [place] [phone] Nicci Hardy MD [address] [place] [address] Microcytic anemia (Primary Dx) Social History Tobacco Use Types Packs/Day Years Used Date Smoking Tobacco: Never Passive Smoke Exposure: Never Smokeless Tobacco: Never Alcohol Use Standard Drinks/Week Comments Never 0 (1 standard drink = 0.6 oz pur e alcohol) Depression Answer Date Recorded Patient Health Questionnaire-9 Score 5 02/25/2024 Patient Health Questionnaire-9 Score 5 02/25/2024 Last PHQ-9: Questionnaire Data Not on file 0 02/25/2024 Housing Stability Answer Date Recorded What is your housing situation today? I have francisca gilbert 02/15/[address] you li ve. Do you have problems with any of the following? None of the above 02/15/2024 Food Insecurity Answer Date Recorded Within the past 12 months, y ou worried that your food would run out before you got money to buy more: Never True 02/15/2024 Within the past 12 months,th e food you bought just didn't last and you didn't have enough money to get more: Never True Transportation Answer Date Recorded In the past 12 months, has l ack of transportation kept you from medical appts, meetings, work or from getting things needed for daily living? No 02/15/2024 Utilities Answer Date Recorded In the past 12 months, has t he electric, gas, oil or water company threatened to shut off services in your home? Yes 02/15/2024 Depression Answer Date Recorded Patient Health Questionnaire-2 Score 2 02/25/2024 Internet Access Answer Date Recorded Internet Access Q1 Yes 03/20/2024 Internet Access Q2 Not on file 03/20/2024 Comments No Sex and Gender Information Value Date Recorded Sex Assigned at Female 05/18/2022 10:17 AM EDT Legal Sex Female 10:17 AM EDT Gender Identity Female 05/18/2022 10:17 AM EDT Sexual Orientation Straight 05/18/2022 10 :17 AM EDT documented as of this encounter Plan of Treatment Not on file documented as of this encounter Visit Diagnoses Diagnosis Microcytic anemia- Primary Unspecified iron deficiency anemia documented in this encounter Additional Health Concerns Assessment Noted Time PHQ-9 Depression Total Score: 5 02/25/20 24 10:10 AM EDT documented as of this encounter Care Teams Scientist Engineer Relationship Specialty Start Date End Date Odalys Amador MD [address] [place] [id number] PCP - General Family Medicine 06/24/16 documented as of this encounter
--- OUTSIDE RECORDS SUMMARY | 2024-09-13 12:45 | XMS_ITS | Encounter Summary ---
Author Organization [email or web address] Address [address] [facility] [address]t [place] [address] Care Team Providers Care Phone Operator Name Role Phone Odalys Amador MD Primary Care Provider + Reason for Visit * Reason Comments Med Refill Encounter Details Date Type Department Care Team ([facility] Contact Info) Description 05/02/2024 Refill [facility] [address] [place] [address] Odalys Amador MD [address] [place] [address] Primary insomnia Social History Tobacco Use Types Packs/Day Years [...] as of this encounter Visit Diagnoses Diagnosis Primary insomnia Persistent disorder of initiating or maintaining sleep documented in this encounter Additional Health Concerns Assessment Noted Time PHQ-9 Depression Total Score: 5 02/25/20 24 10:10 AM EDT documented as of this encounter Care Teams Phone Operator Relationship Specialty Start Date End Date Odalys Amador MD [address] [place] [phone] PCP - General Family Medicine 06/24/16 documented as of this encounter
--- OUTSIDE RECORDS SUMMARY | 2024-09-13 12:45 | XMS_ITS | Encounter Summary ---
Author Organization [employer] Address [address] [facility] [address]t [place] [address] Care Team Providers Care Director Park Name Role Phone Odalys Amador MD Primary Care Provider + Reason for Visit * Reason Comments Med Refill Encounter Details Date Type Department Care Team ([facility] st Contact Info) Description 01/12/2024 Refill [facility] [address] [place] [address] Jj Adler MD [address] [place] [address] Social History Tobacco Use Types Packs/Day Years Used Date Smoking Tobacco: Never Passive Smoke Exposure: Never Smokeless Tobacco: Never Alcohol Use Standard Drinks/Week Comments Never 0 (1 standard drink = 0.6 oz pur e alcohol) Depression Answer Date Recorded Patient Health Questionnaire-9 Score 3 01/29/2023 Housing Stability Answer Date Recorded What is your housing situation today? I have francisca gilbert 05/05/[address] you li ve. Do you have problems with any of the following? None of the above 05/05/2023 Food Insecurity Answer Date Recorded Within the past 12 months, y ou worried that your food would run out before you got money to buy more: Never True 05/05/2023 Within the past 12 months,th e food you bought just didn't last and you didn't have enough money to get more: Never True Transportation Answer Date Recorded In the past 12 months, has l ack of transportation kept you from medical appts, meetings, work or from getting things needed for daily living? No 05/05/2023 Utilities Answer Date Recorded In the past 12 months, has t he electric, gas, oil or water [employer] threatened to shut off services in your home? No 05/05/2023 Depression Answer Date Recorded Patient Health Questionnaire-2 Score 1 01/29/2023 Comments Unknown Sex and Gender Information Value Date Recorded Sex Assigned at Female 05/18/2022 10:17 AM EDT Legal Sex Female 10:17 AM EDT Gender Identity Female 05/18/2022 10:17 AM EDT Sexual Orientation Straight 05/18/2022 10 :17 AM EDT documented as of this encounter Plan of Treatment Not on file documented as of this encounter Visit Diagnoses Not on filedocumented in this encounter Additional Health Concerns Assessment Noted Time PHQ-9 Depression Total Score: 3 01/30/20 23 10:44 AM EDT documented as of this encounter Care Teams Director Park Relationship Specialty Start Date End Date Odalys Amador MD [address] [place] [address] PCP - General Family Medicine 06/24/16 documented as of this encounter
--- OUTSIDE RECORDS SUMMARY | 2024-09-13 12:45 | XMS_ITS | Encounter Summary ---
Author Organization [employer] Address [address] [facility] 7t [place] [address] Care Team Providers Care Information Technology Security Manager Name Role Phone Odalys Amador MD Primary Care Provider + Reason for Referral * Consultation (Routine) - Authorized Specialty Diagnoses / Procedures Referred By Yves callaway Referred To Contact Hand Surgery Diagnoses Mild carpal tunnel syndrome of right wrist Te Allison MD [address] [place] [phone] Phone: tel: fax: [facility] [address] [place] [address] Phone: tel: Referral ID Status Reason Start Date Expiration Date Visits Requested Visits Authorized [id number] Authorized Specialty Services Required 08/18/2024 08/18/2025 6 6 Encounter Details Date Type Department Care Team (Late st Contact Info) Description 08/18/2024 Telephone [facility] [address] [place] [address] [phone] Te Allison MD [address] [place] [phone] Social History Tobacco Use Types Packs/Day Years [...] your housing situation today? I have francisca sing 02/15/[address] you li [...] AM EDT documented as of this encounter Miscellaneous Notes * Telephone Encounter - Te Allison MD - 08/18/2024 1:06 PM EST Previously seen for right wrist pain. EMG shows mild right medial neuropathy across carpal tunnel. Result reviewed with the patient. Will refer to Hand Surgery. Advised to continue wearing the night splint. Diagnoses and all orders for this visit: Mild carpal tunnel syndrome of right wrist (Primary) - Referral to Hand Surgery; Future documented in this encounter Plan of Treatment Scheduled Referrals Name Type Priority Associated Diagnoses Orde r Schedule Referral to Hand Surgery Outpatient Referral Routine Mild carpal tunnel syndrome of right wrist Expected: 08/18/2024 (Approximate), Expires: 08/18/2025 documented as of this encounter Visit Diagnoses Diagnosis Mild carpal tunnel syndrome of right wrist- Primary documented in this encounter Additional Health Concerns Assessment Noted Time PHQ-9 Depression Total Score: 5 02/25/20 24 10:10 AM EDT documented as of this encounter Care Teams Information Technology Security Manager Relationship Specialty Start Date End Date Odalys Amador MD [address] [place] [phone] PCP - General Family Medicine 06/24/16 documented as of this encounter
--- OUTSIDE RECORDS SUMMARY | 2024-09-13 12:45 | XMS_ITS | Encounter Summary ---
Author Organization [employer] Address [address] [facility] 7t [place] [address] Care Team Providers Care Microsoft Systems Engineer Name Role Phone Odalys Amador MD Primary Care Provider + Reason for Visit * Reason Onset Date Comments Med Refill 06/28/2024 Encounter Details Date Type Department Care Team ([facility] st Contact Info) Description 06/28/2024 Refill [facility] [address] [place] [address] Odalys Amador MD [address] [place] [address] Primary insomnia Social History Tobacco Use Types [...] documented as of this encounter Care Teams Microsoft Systems Engineer Relationship Specialty Start Date End Date Odalys Amador MD [address] [place] [phone] PCP - General Family Medicine 06/24/16 documented as of this encounter
--- OUTSIDE RECORDS SUMMARY | 2024-09-13 12:45 | XMS_ITS | Encounter Summary ---
Author Organization [employer] Address [address] [place] [address] Care Team Providers Care School Bus Attendant Name Role Phone Odalys Amador MD Primary Care Provider + Reason for Referral * Consultation (Routine) - Authorized Specialty Diagnoses / Procedures Referred By Yves callaway Referred To Contact Cardiology Diagnoses Palpitations Bradycardia Nicci Hardy MD [address] [place] [address] Phone: tel: fax: Torsten Craft MD [address] [place] [address] Phone: tel: fax: Referral ID Status Reason Start Date Expiration Date Visits Requested Visits Authorized [id number] Authorized Specialty Services Required 08/15/2024 08/15/2025 6 6 Encounter Details Date Type Department Care Team ([facility] Contact Info) Description 08/15/2024 Telephone [facility] [address] [place], [place] [phone] Nicci Hardy MD [address] [place] [address] Social History Tobacco Use Types Packs/Day Years [...] encounter Miscellaneous Notes * Telephone Encounter - Nicci Hardy MD - 08/15/2024 10:18 AM EST Patient was called and the result of the Holter monitor was reported. She also reveals that she haschest pain almost daily at night. Unknown trigger. Denies any anxiety associated. She will need further evaluation by her dry kiln loader. Referral will be generated. documented in this encounter Plan of Treatment Scheduled Referrals Name Type Priority Associated Diagnoses Order Schedule Referral to Cardiology Outpatient Referral Routine Palpitations Bradycardia Expected: 08/15/2024 (Approximate), Expires: 08/15/2025 documented as of this encounter Visit Diagnoses Diagnosis Palpitations- Primary Bradycardia Other specified cardiac dysrhythmias documented in this encounter Additional Health Concerns Assessment Noted Time PHQ-9 Depression Total Score: 5 02/25/20 24 10:10 AM EDT documented as of this encounter Care Teams School Bus Attendant Relationship Specialty Start Date End Date Odalys Amador MD [address] [place] [id number] PCP - General Family Medicine 06/24/16 documented as of this encounter
--- OUTSIDE RECORDS SUMMARY | 2024-09-13 12:45 | XMS_ITS | Encounter Summary ---
Author Organization [employer] Address [address] [facility] [address] [place] [address] Care Team Providers Care Parking Enforcer Name Role Phone Odalys Amador MD Primary Care Provider + Reason for Visit * Reason Onset Date Comments Call Back Request 08/14/2024 Results 08/14/2024 Encounter Details Date Type Department Care Team ([facility] st Contact Info) Description 08/14/2024 Telephone [facility] [address] [place], [place] [phone] Odalys Amador MD [address] [place] [address] Call Back Request; Results Social History Tobacco Use Types Packs/Day Years [...] encounter Miscellaneous Notes * Telephone Encounter - Jose Sanchez - 08/14/2024 11:48 AM EST Tc from pt notifying she had a Holter monitor for 48 hours , pt is requesting results as no one hadcalled her in regards any results. [phone] documented in this encounter Plan of Treatment Not on file documented as of this encounter Visit Diagnoses Not on filedocumented in this encounter Additional Health Concerns Assessment Noted Time PHQ-9 Depression Total Score: 5 02/25/20 24 10:10 AM EDT documented as of this encounter Care Teams Parking Enforcer Relationship Specialty Start Date End Date Odalys Amador MD [address] [place] [id number] PCP - General Family Medicine 06/24/16 documented as of this encounter
--- OUTSIDE RECORDS SUMMARY | 2024-09-13 12:45 | XMS_ITS | Encounter Summary ---
Author Organization [employer] Address [address] [facility] [address] [place] [address] Care Team Providers Care Manager General Name Role Phone Odalys Amador MD Primary Care Provider + Reason for Visit * Reason Onset Date Comments Med Refill 05/15/2024 Encounter Details Date Type Department Care Team ([facility] st Contact Info) Description 05/15/2024 Refill [facility] [address] [place] [address] Odalys Amador MD [address] [place] [address] Primary insomnia Social History Tobacco Use Types [...] documented as of this encounter Care Teams Manager General Relationship Specialty Start Date End Date Odalys Amador MD [address] [place] [id number] PCP - General Family Medicine 06/24/16 documented as of this encounter
--- OUTSIDE RECORDS SUMMARY | 2024-09-13 12:45 | XMS_ITS | Clinical Summary ---
Author Organization [employer] [facility] Address [address] [place] [address] Care Team Providers Care Circular Saw Filer Name Role Phone Unavailable Primary Care Provider Unavailabl e Social History Tobacco Use Types Packs/Day Years Used Date Smoking Tobacco: Never Assessed Sex and Gender Information Value Date Recorded Sex Assigned at Not on file Gender Identity Not on file Sexual Orientation Not on file Plan of Treatment Not on file
--- OUTSIDE RECORDS SUMMARY | 2024-09-13 12:45 | XMS_ITS | Clinical Summary ---
Author Organization [email or web address] Address [address] [place] [address] 7[address] [place] [address] Care Team Providers Care Chief Operator Name Role Phone Odalys Amador MD Primary Care Provider + Allergies Active Allergy Reactions Criticality Noted Date Comments Pineapple Rash Low 07/05/2024 Medications docusate sodium (Colace) 100 MG capsule TAKE 1 CAPSULE BY MOUTH TWICE A DAY NEEDED 06/03/2022 Active hydrOXYzine HCl (Atarax) 25 MG tablet TAKE 1 TABLET BY ORAL ROUTE 3 TIMES EVERY DAY NEEDED FOR ANXIETY 30 tablet 5 09/10/2023 Active cetirizine (ZyrTEC) 10 MG tablet TAKE 1 TABLET (10 MG) BY MOUTH ONCE PER DAY. 90 tablet 02/11/2024 Active meloxicam (Mobic) 15 MG tablet TAKE 1 TABLET BY MOUTH EVERY DAY 30 tablet 03/31/2024 Active traZODone (Desyrel) 50 MG tabletIndicatio ns:Primary insomnia TAKE 1 TABLET BY MOUTH AT BEDTIME 90 tablet 07/24/2024 Active sertraline (Zoloft) 50 MG tablet TAKE 1 TABLET BY MOUTH EVERY DAY 30 tablet 2 07/24/2024 Active ferrous sulfate (Fe Tabs) 325 (65 Fe) MG EC tabletIndicatio ns:Microcytic anemia Take 1 tablet (325 mg) by mouth with breakfast. Do not crush, chew, or split. 30 tablet 11 07/25/2024 Active Active Problems Problem Noted Date Diagnosed Date Encounter for cervical Pap smear with pelvic exa m 05/15/2024 Assessment & Plan (05/15/2024 5:01 PM EDT): Pelvic exam today wnl FU pap smear results/HPV/STI testing and will call back PRN positive results If today's pap smear/co testing is normal next one will be due in 5 years. Pt feels safe at home no concern for DV/STDs Counseled regarding STI prevention FU 6mo regular FU She agreed to Hep B #3 today Screening examination for ST D (sexually transmitted disease) 05/15/2024 Assessment & Plan (05/15/2024 5:04 PM EDT): Interested on STD screening Will order labs Generalized anxiety disorder 02/25/2024 Assessment & Plan (07/20/2024 5:03 PM EST): I gave her infor re [facility] to make an appt and for prn urgent visits/crisis. She's aware that she can also come to [facility], Start Sertraline 50mg/d and fu in 6w. Assessment & Plan (02/25/2024 10:51 AM EDT): PHQ9 was 5, pt agreed to start psychotherapy. I development system efficiency manager her information regarding [facility] for her to make an appointment with counseling. Has crisis number and feels safe at home. Continue Trazodone and Hydroxyzine. Follow up with me in 2 months. Dermatitis 07/23/2023 Assessment & Plan (02/25/2024 10:38 AM EDT): Resolved by stop eating pineapple. Advised to keep symptom diary and avoid triggering foods. Assessment & Plan (11/16/2023 9:31 AM EDT): - apparently related to contact dermitis with pineapple products - advised to stay away from pineapple products and check labels of packed foods - restart Zyrtec and f/u in 3 months Assessment & Plan (07/23/2023 3:29 PM EST): Resolved, pt did not have angioedema or more sever reactions, I do not think she need Epipen at this time Order labs and restart Zyrtec FU w me in 4 wks Primary insomnia 01/29/2023 Assessment & Plan (07/20/2024 5:05 PM EST): Restart Trazodone at bedtime, treat anxiety as above. D/w her re sleep hygiene practice. Assessment & Plan (01/29/2023 11:23 AM EDT): She is using hydroxazine several times per day, will start trazodone 25-50mg qhs continue hydroxazine PRN and FU in 3 months Increased appetite 01/28/2023 Feeling irritable 01/28/2023 Generalized pain of knee region 01/28/2023 Assessment & Plan (01/29/2023 11:53 AM EDT): Pt needs to schedule appointment with [facility], information given to pt again Counseled to use Tylenol PRN Iron deficiency anemia due to chronic blood loss 10/20/2022 Assessment & Plan (02/25/2024 10:37 AM EDT): Significantly improved. She will complete Iron therapy this month and will follow up hemoglobin in 6 months. Assessment & Plan (11/16/2023 1:09 PM EDT): - continue iron supplementation for now. Check labs and f/u in 3 months - will order labs and f/u in 3 months, will discuss about GI referral for colonoscopy Assessment & Plan (10/20/2022 11:07 AM EDT): secondary to DUB Check Hemoglobin and continue iron supplementation for now, will call to adjust medications if needed. Sickle cell trait 10/20/2022 Chronic pain of left knee 10/20/2022 Assessment & Plan (07/20/2024 5:07 PM EST): Advised to rs PT, continue Tylenol prn Advised to come to acupuncture clinic, declined referral to [facility] Clinic. Assessment & Plan (02/25/2024 10:42 AM EDT): Will refer to PT again, reminded to follow through with treatment plan. Continue Tylenol prn. Take Meloxicam x 1-2 weeks. Assessment & Plan (11/16/2023 9:28 AM EDT): - agreed to be referred to PT, she will request sick leave or FMLA to be able to attend several session this time - use Tylenol PRN and recommended to come to acupuncture clinic - X-ray of knee last year was within normal limits Assessment & Plan (10/20/2022 11:02 AM EDT): Most likely OA, r/o meniscal compromise refer to PT order x-ray of left knee stat Tylenol PRN and FU with me in 3 months She can wear left knee brace PRN History of cholecystectomy 08/01/2018 Cholecystitis 07/07/2018 Right upper quadrant pain 07/07/2018 Spontaneous ecchymosis 04/29/2017 Pain in female pelvis 07/07/2016 Visual impairment 07/07/2016 Encounters Date Type Department Care Team Description 08/18/2024 Telephone [facility] [address] [place] [phone] Te Allison MD 08/15/2024 Telephone [facility] MED & PEDS [address] [place] [address] Nicci Hardy MD 08/14/[address] [address] Odalys mAador MD Call Back Request; Results 07/26/2024 Telephone [facility] [address] [place] [phone] Nicci Hardy MD 07/25/2024 Orders Only [facility]EDS [address] [place] [address] Nicci Hardy MD Microcytic anemia (Primary Dx) 07/24/2024 6:40 PM EST Office Visit [facility] [address] [place] [phone] Nicci Hardy MD Dizziness and giddiness (Primary Dx); Palpitations; Bradycardia 07/24/[address] [phone] Odalys Amador MD Nurse Triage 07/24/2024 Refill [facility] MEDICINE [address] [place] [address] Odalys Amador MD 07/22/2024 Refill [facility] MED[facility] [address] [place] [phone] Odalys Amador MD Primary insomnia 07/05/2024 5:40 PM EST Office Visit [facility] [address] [place] [address] Te Allison MD Right wrist pain (Primary Dx) 06/28/2024 Refill [facility] [address] [place] [phone] Odalys Amador MD Primary insomnia 06/21/2024 Telephone [facility] [address] [place] [phone] Odalys Amador MD Nurse Triage 06/21/2024 Telephone [facility] [address] [place] [phone] Odalys Amador MD No Show 06/20/2024 Telephone [facility] [address] [place] [phone] Danielle Jackson MA Chart prep from Last 3 Months Immunizations Name Administration Dates Next Due Hep B, adult 05/15/2024,11/28/2021,10/23/2021 Influenza injectable quadriv alent IIV4 with preservative 04/21/2023,04/16/2022,04/29/2017 Influenza injectable quadriv alent preservative free 06/05/2021,04/22/2019,06/18/2016 Influenza, IIV3, injectable 05/02/2024 MMR 12/17/2017 Tdap 11/18/2016 Varicella 11/28/2021,10/23/2021 Social History Tobacco Use Types Packs/Day Years Used Date Smoking Tobacco: Never Passive Smoke Exposure: Never Smokeless Tobacco: Never Tobacco Cessation:Counseling Given: Not Answered Alcohol Use Standard Drinks/Week Comments Never 0 [...] Orientation Straight 05/18/2022 10 :17 AM EDT Last Filed Vital Signs Vital Sign Reading Time Taken Comments Blood Pressure 115/77 07/24/2024 5:33 PM EST Pulse 70 07/24/2024 5:33 PM EST Temperature 36.8 ??C (98.3 ??F) 07/24/2024 5:33 PM ES T Respiratory Rate 20 07/05/2024 5:21 PM EST Oxygen Saturation 100% 07/24/2024 5:33 PM EST Inhaled Oxygen Concentration - - Weight 89.3 kg (196 lb 12.8 oz) 07/05/2024 5:21 PM EST Height 165.1 cm (5' 5 ) 07/05/2024 5:21 PM EST Body Mass Index 32.75 07/05/2024 5:21 PM EST Plan of Treatment Health Maintenance Due Date Last Done Comments Alcohol/Substance Use Screening 1999 Family Planning (PISQ) 09/17/2002 COVID-19 Vaccine ( season) 2024 07/08/2021, 11/05/2020, 10/08/2020 SDOH Screening 02/14/2025 02/15/2024 Depression Screening 02/24/2025 02/25/2024, 02/25/20 24 Tobacco Screening 07/24/2025 07/24/2024 DTaP/Tdap/Td Vaccines (2 - Td or Tdap) 11/18/2026 11/18/2016 Cervical Cancer Screening 05/15/2029 HPV/Cotest 05/15/2029 05/15/2024, 06/05/2021 Pap Smear 05/15/2029 05/15/2024, 06/05/2021 Zoster Vaccines (1 of 2) 09/17/2037 RSV Patients and Patients Aged 60 years or older (1 - 1-dose 75+ series) 09/17/2062 Hepatitis C Screening Completed 10/16/2021 Influenza Vaccine Completed 05/02/2024, , 04/16/2022, Additional history exists Hepatitis B Vaccines Completed 05/15/2024, 11/28/2021, 10/23/2021 HIV Screening Completed 07/25/2024 HIB Vaccines Aged Out No longer eligi ble based on patient's age to complete this topic HPV Vaccines Aged Out No longer eligi ble based on patient's age to complete this topic Hepatitis A Vaccines Aged Out No long er eligible based on patient's age to complete this topic IPV Vaccines Aged Out No longer eligi ble based on patient's age to complete this topic Meningococcal Vaccine Aged Out No conrad elvia eligible based on patient's age to complete this topic Pneumococcal Vaccine: Pediatrics (0 to 5 Years) and At-Risk Patients (6 to 49) Years) Aged Out No longer eligible based on patient's age to complete this topic RSV under 20 months Aged Out No longe r eligible based on patient's age to complete this topic Rotavirus Vaccines Aged Out No longer eligible based on patient's age to complete this topic Procedures Procedure Name Priority Date/Time Associated Diagnosis Comments XR WRIST 3+ VIEWS RIGHT Routine 07/25/2024 10:35 AM EST Right wrist pain CBC WITH AUTO DIFFERENTIAL Routine 07/25/2024 10:28 AM EST Dizziness and giddiness Palpitations COMPREHENSIVE METABOLIC PANEL Routine 07/25/2024 10:28 AM EST Dizziness and giddiness Palpitations TSH W/REFLEX TO FT4 Routine 07/25/2024 1 0:28 AM EST Dizziness and giddiness Palpitations HIV 1/2 ANTIGEN/ANTIBODY, FOURTH GENERATION W/RFL Routine 07/25/2024 10:28 AM EST Screening examination for STD (sexually transmitted disease) SYPHILIS SCREEN Routine 07/25/2024 10:28 AM EST Screening examination for STD (sexually transmitted disease) ECG 12-LEAD Routine 07/24/2024 7:13 PM EST Dizziness and giddiness Palpitations HPV MRNA E6/E7 REFLEX TO HPV 16, 18/45 Routine 05/15/2024 2:20 PM EDT Encounter for cervical Pap smear with pelvic exam THINPREP IMAGING SYSTEM PAP Routine 05/15/2024 2:20 PM EDT ZZZ HISTORICAL HEPATITIS C AB W/REFL TO HCV RNA, QN, PCR Routine 10/16/2021 10:22 AM EDT from Last 3 Months or Most Recently Relevant to Health Maintenance Results * XR Wrist 3+ Views Right (07/25/2024 10:35 AM EST) Anatomical Region Laterality Modality Upper Extremities, Wrist Right Radiogr aphic Imaging 07/25/2024 10:3 5 AM EST Narrative 07/25/2024 11:01 AM EST ? [facility] ?[address] ?[place] [address] ?XRay Report ? Signed ? Patient: Cumba,Dianette M ?MR#: [id number] ?? [id number] ? : 1985 ?Acct:[id number] ? Age/Sex: 38 / F ?ADM Date: 07/25/24 ? Loc: HO.HHCL ? Attending Dr: Nicci Hardy MD ? Ordering Physician: Te Allison MD ?? Date of Service: 07/25/24 ?? Procedure(s): XR wrist RT min 3V ?? Accession Number(s): [id number] ? cc: Te Allison MD ? EXAMINATION: ?? XR WRIST, RIGHT ? CLINICAL INFORMATION: ?? 1-month duration of right wrist pain ? COMPARISON: ?? None available. ? TECHNIQUE: ?? PA, lateral, and oblique views of the right wrist. ? FINDINGS: ?? No acute cortical disruption or gross malalignment. No lytic or blastic ?? lesions. No subcutaneous emphysema. ? XR/XR wrist RT min 3V ?? IMPRESSION: ?? No acute fracture or dislocation. ? Electronically signed by: ??Jacobo Stanton MD ??07/25/2024 10:58 AM ?? EST RP ? Dictated By: ?Jacobo Nuñez MD ? Signed By: ?<Electronically signed by Jacobo Betlran MD in OV> ? 07/25/24 1058 ? DD/ 1035 ? TD/TT: 07/25/24 1005 ? Radiologic Technologist Mammogram: ? Procedure Note [place], Image - 07/25/[address] [address] XRay Report Signed Patient: Hussain Cantu MMR#: [id number] : 1985Acct:[id number] Age/Sex: 38 / FADM Date: 07/25/24 Loc: HO.HHCL Attending Dr: Nicci Hardy MD Ordering Physician: Te Allison MD Date of Service: 07/25/24 Procedure(s): XR wrist RT min 3V Accession Number(s): [id number] cc: Te Allison MD EXAMINATION: XR WRIST, RIGHT CLINICAL INFORMATION: 1-month duration of right wrist pain COMPARISON: None available. TECHNIQUE: PA, lateral, and oblique views of the right wrist. FINDINGS: No acute cortical disruption or gross malalignment. No lytic or blastic lesions. No subcutaneous emphysema. XR/XR wrist RT min 3V IMPRESSION: No acute fracture or dislocation. Electronically signed by: Jacobo Stanton MD 07/25/2024 10:58 AM EST RP Dictated By: Jacobo Nuñez MD Signed By: <Electronically signed by Jacobo Beltran MDin OV> 07/25/24 1058 DD/ 1035 TD/TT: 07/25/24 1005 Radiologic Technologist Mammogram: us Te Allison MD IMG XR PROCEDURES Edited Result - Final * Syphilis Screen (07/25/2024 10:28 AM EST) Syphilis Screen Nonreactive Nonreactive [facility] Blood 07/25/2024 10:2 8 AM EST 07/25/2024 11:39 AM EST us Odalys Amador MD LAB BLOOD ORDERABLES Fin al Result Performing Organization Address [facility]/ZIP Co de Phone Number [facility] [address] [place] [phone] * TSH W/Reflex to FT4 (07/25/2024 10:28 AM EST) TSH reflex Free T4 1.04 0.32 - 4.0 uIU/mL [facility] Blood Venous blood specimen / Unknown 07/25/2024 10:28 AM EST 07/25/2024 11:39 AM EST us Nicci Hardy MD LAB BLOOD ORDERABLES Final Result Performing Organization Address [facility]/ZIP Co de Phone Number [facility] [address] [place] [phone] * (ABNORMAL) CBC auto differential (07/25/2024 10:28 AM EST) White Blood Count 6.5 4.8 - 10.8 X10*3/uL [facility] Red Blood Count 3.74(L) 4.20 - 5.50 X10*6/uL [facility] Hemoglobin 11.1(L) 12.0 - 16.0 g/dl [facility] Hematocrit 30.3(L) 37.0 - 47.0 % [facility] Mean Corpuscular Volume 81.0 80.0 - 98.0 fL [facility] Mean Corpuscular Hemoglobin 29.7 27.0 - 33.0 pg [facility] Mean Corpuscular HGB Conc 36.6(H) 31.0 - 35.0 g/dl [facility] Red Cell Distribution Width 14.4 11.0 - 16.0 % [facility] Platelet Count 342 160 - 400 X10*3/uL [facility] Mean Platelet Volume 9.8 9.4 - 12.3 fL [facility] Neutrophils Percent Auto 59.6 45 - 73 % [facility] Imm Gran Pct Auto 0.3 0.0 - 0.4 % [facility] Lymphocytes Percent Auto 28.8 20 - 40 % [facility] Monocytes Percent Auto 8.5 2 - 11 % [facility] Eosinophils Percent Auto 2.0 0 - 4 % [facility] Basophils Percent Auto 0.8 0 - 2 % [facility] NRBC Pct Auto 0.0 0.0 - 0.2 /100WBC [facility] Neutrophils Absolute Auto 3.8 2.0 - 8.3 x10*3/uL [facility] Imm Gran Abs Auto 0.02 0.00 - 0.03 X10*3/uL [facility] Lymphocytes Absolute Auto 1.9 1.2 - 4.9 X10*3/uL [facility] Monocytes Absolute Auto 0.6 0.1 - 1.2 X10*3/uL [facility] Eosinophils Absolute Auto 0.1 0.0 - 0.4 X10*3/uL [facility] Basophils Absolute Auto 0.1 0.0 - 0.2 X10*3/uL [facility] NRBC Abs Auto 0.000 0.0 - 0.012 X10*3/uL [facility] Blood Venous blood specimen / Unknown 07/25/2024 10:28 AM EST 07/25/2024 11:39 AM EST us Nicci Hardy MD LAB BLOOD ORDERABLES Final Result Performing Organization Address [facility]/ZIP Co de Phone Number [facility] [address] [place] [address] [phone] * HIV-1/2 Antigen and Antibodies, Fourth Generation, with Reflexes (07/25/2024 10:28 AM EST) [facility] HIV AB/AG Nonreactive Nonreactive [facility] Comment:HIV-1 p24 Ag and/or HIV-1/HIV-2 Ab not detected.A test result that is nonreactive does not exclude thepossibility of exposure to or infection with HIV-1 and/orHIV-2. Nonreactive results in this assay for individualswith prior exposure to HIV-1 and/or HIV-2 may be due toantigen and antibody levels that are below the limit ofdetection of this assay.The [employer] HIV Ag/Ab Combo assay result andsupplemental assay results should be interpreted inconjunction with the patient's clinical presentation,history and other laboratory results. If the results areinconsistent with clinical evidence, additional testing issuggested to confirm the result. Blood Venous blood specimen / Unknown 07/25/2024 10:28 AM EST 07/25/2024 11:39 AM EST us Odalys Amador MD LAB BLOOD ORDERABLES Fin al Result Performing Organization Address [facility]/ZIP Co de Phone Number [facility] [address] [place] [address] [phone] * (ABNORMAL) Comprehensive Metabolic Panel (07/25/2024 10:28 AM EST) Sodium 139 135 - 145 mmol/L [facility] Potassium 4.1 3.3 - 5.1 mmol/L [facility] Chloride 110(H) 96 - 108 mmol/L [facility] Carbon Dioxide 27 22 - 29 mmol/L [facility] Anion Gap 6(L) 12 - 20 [facility] Urea Nitrogen (BUN) 7(L) 9 - 16 mg/dL [facility] Creatinine, Serum 0.80 0.5 - 1.4 mg/dL [facility] Estimated Glomerular Filt Rate >60 [facility] Comment:Chronic Kidney Disea se: Estimated GFR < 60 mL/min/1.45a1Acssiq Kidney Disease: Estimated GFR < 15 mL/min/1.73m2 Glucose 79 60 - 115 mg/dL [facility] Calcium 9.0 8.4 - 10.2 mg/dL [facility] Bilirubin, Total 0.9 0.0 - 1.0 mg/dL [facility] Aspartate Amino Transferase 24 5 - 31 U/L [facility] Alanine Aminotransferase 27 0 - 31 U/L [facility] Total Protein 7.5 6.5 - 8.0 g/dL [facility] Albumin Level 4.1 3.5 - 5.0 g/dL [facility] Alkaline Phosphatase 104 39 - 117 U/L [facility] Blood Venous blood specimen / Unknown 07/25/2024 10:28 AM EST 07/25/2024 11:39 AM EST us Nicci Hardy MD LAB BLOOD ORDERABLES Final Result [facility] [address] [place], [place] [phone] * ECG 12 lead (07/24/2024 7:13 PM EST) Narrative Nicci Hardy MD - 07/24/2024 7:13 PM EST HR 58. Sinus rhythm. Melvin: 23 degrees. No sign of LAE, MILI. No hypertrophy. Normal EKG> us Nicci Hardy MD ECG ORDERABLES Final Resul t * ThinPrep Imaging System Pap (05/15/2024 2:20 PM EDT) SOURCE: SEE NOTE [facility] Comment:Cervix Report Status: [facility] Clinical Information: SEE NOTE [facility] Comment:None given LMP: SEE NOTE [facility] Comment:NONE GIVEN Prev. PAP: SEE NOTE [facility] Comment:NONE GIVEN Prev. BX: SEE NOTE [facility] Comment:NONE GIVEN Statement Of Adequacy: SEE NOTE [facility] Comment:Satisfactory for tammie luation.Endocervical/transformation zone componentpresent. General Categorization: [facility] Interpretation/Result: SEE NOTE [facility] Comment:Cytology Results: Ne gative for intraepitheliallesion or malignancy. Cytology Comment SEE NOTE [facility] Comment:This Pap test has be en evaluated with computerassisted technology. Italian Lecturer: SEE NOTE [facility] Comment:CMG, CT(ASCP)CT scre ening location: [address] [address] Review Italian Lecturer: [facility] Pathologist [facility] PAP Infection SEE NOTE [facility] Comment:Shift in vaginal juan ra suggestive of bacterialvaginosis. See Note SEE [facility] Comment:EXPLANATORY NOTE:The Pap is a screening test for cervical cancer. It isnot a diagnostic test and is subject to false negativeand false positive results. It is most reliable when asatisfactory sample, regularly obtained, is submittedwith relevant clinical findings and history, and whenthe Pap result is evaluated along with historic andcurrent clinical information.THIS TEST WAS PERFORMED AT:[facility] [address] [id number] CHAUHAN MD 05/15/2024 2:20 PM EDT 05/15/2024 6:47 PM EDT Narrative [facility] - 05/19/2024 11:08 AM EDT SEE SCANNED RESULTS IN EMR us Odalys Amador MD LAB PATHOLOGY ORDERABLES Final Result Performing Organization Address [facility]/ZIP Co de Phone Number [facility] [address] [place] [phone] * HPV mRNA E6/E7 w/Reflex to HPV Genotypes 16, 18/45 (05/15/2024 2:20 PM EDT) HPV nRNA E6/E7 Not Detected [facility] Comment:REFERENCE RANGE: Not DetectedMethodology: Mother Superior-Mediated AmplificationThis assay detects E6/E7 viral messenger RNA (mRNA) from 14high- risk HPV types(16,18,31,33,35,39,45,51,52,56,58,59,66,68).Cervical sources are required for HPV testing.If a vaginal source from a patient who has had atotal hysterectomy with removal of cervix wassubmitted, please contact the testing laboratoryfor alternative testing options.For additional information, please refer tohttp://education.[facility]/faq/VFK323m0(This link if provided for information/educational purposes only.)THIS TEST PERFORMED AT:[employer] [place] [phone] DIRECTOR: TINA CHAUHAN MD HPV mRNA E6/E7 [facility] HPV 16 RNA [facility] HPV 18/45 RNA [facility] Vaginal Fluid Cervix uteri structure / Unknown 05/15/2024 2:20 PM EDT 05/15/2024 6:47 PM EDT Narrative [facility] - 05/19/2024 11:13 AM EDT Collection Date: [id number] by: DANIELLE Villafuerte: Cervix us Odalys Amador MD LAB CYTOLOGY ORDERABLES Final Result Performing Organization Address City[facility]/ZIP Co de Phone Number [facility] [address] [place] [phone] * HEPATITIS C AB W/REFL TO HCV RNA, QN, PCR (10/16/2021 10:22 AM EDT) HEPATITIS C ANTIBODY NON-REACT JAMMIE NON-REACT JAMMIE [facility] INDEX 0.01 <1.00 [facility] Comment: ?? HCV antibody was non-reactive. There is no laboratory ?? evidence of HCV infection. ?? In most cases, no further action is required. However, if recent HCV exposure is suspected, a test for HCV RNA (test code 58646) is suggested. ?? For additional information please refer to http://education.[facility]/faq/LAS90r5 (This link is being provided for informational/ educational purposes only.) ?? 10/16/2021 10:2 2 AM EDT Odalys Amador MD HISTORICAL/NON ORDERABLE LABS Final Result [facility] [address] from Last 3 Months or Most Recently Relevant to Health Maintenance [place] [place] [address] C3 Care Teams Chief Operator Relationship Specialty Start Date End Date Odalys Amador MD [address] [place] [phone] PCP - General Family Medicine 06/24/16
== END 2024-09-13 11:13 | disposition home or self-care (01) ==
PROVIDERS: PCP Internal Medicine
DX: G56.01 Carpal tunnel syndrome, right upper limb (principal)
CPT/HCPCS: 99204

== ENCOUNTER → 2024-09-13 10:25 | Outpatient (BNVA) | payer MEDICAID, SELFPAY | PROVIDERS: PCP Internal Medicine | DX: G56.01 Carpal tunnel syndrome, right upper limb (principal) | CPT/HCPCS: 99212 ==

== ENCOUNTER 2024-09-26 07:49 | Day surgery (SDC) | payer MEDICAID, SELFPAY ==
--- OUTSIDE RECORDS SUMMARY | 2024-09-13 14:46 | XMS_ITS | Clinical Summary ---
Author Organization [employer] Address [address] [place] [address] 7t [place] [address] Care Team Providers Care Wood Gluer Name Role Phone Odalys Amador MD Primary [...] 5, pt agreed to start psychotherapy. I parole officer her information regarding [facility] for her to make an appointment [...] EDT): Pt needs to schedule appointment with [facility] PT, information given to pt again Counseled [...] Type Department Care Team Description 08/18/2024 Telephone [facility] [address] [place] [phone] Te Allison MD 08/15/2024 Telephone [facility] [address] [place] [address] Nicci Hardy MD 08/14/[address] [address] Odalys Amador MD Call Back Request; Results 07/26/2024 Telephone [facility] [address] [place] [address] Nicci Hardy MD 07/25/2024 Orders Only [facility] [address] [place] [address] Nicci Hardy MD Microcytic anemia (Primary Dx) 07/24/2024 6:40 PM EST Office Visit [facility] [address] [place] [phone] Nicci Hardy MD Dizziness and giddiness (Primary Dx); Palpitations; Bradycardia 07/24/[address] [address] Odalys Amador MD Nurse Triage 07/24/2024 Refill [facility] [address] [place] [address] Odalys Amador MD 07/22/2024 Refill [facility] [address] [place] [phone] Odalys Amador MD Primary insomnia 07/05/2024 5:40 PM EST Office Visit [facility] [address] [place] [address] Te Allison MD Right wrist pain (Primary Dx) 06/28/2024 Refill [facility] [address] [place] [address] Odalys Amador MD Primary insomnia 06/21/2024 Telephone [facility] [address] [place] [address] Odalys Amador MD Nurse Triage 06/21/2024 Telephone [facility] [address] [place] [address] Odalys Amador MD No Show 06/20/2024 Telephone [facility] [address] [place] [address] Danielle [place] Chart prep from Last [...] EST Narrative 07/25/2024 11:01 AM EST ? [facility] ?[address] ?[place] [address] ?XRay Report ? Signed ? Patient: Cumba,Dianette M ?MR#: [id number] ?? [id number] ? : 1985 ?Acct:[id number] ? Age/Sex: 38 / F ?ADM Date: 07/25/24 ? Loc: HO.HHCL ? Attending Dr: Nicci Hardy MD ? Ordering Physician: Te Allison MD ?? Date of Service: 07/25/24 ?? Procedure(s): XR wrist RT min 3V ?? Accession Number(s): [id number] ? cc: Te Allison MD ? EXAMINATION: [...] ? Signed By: ?<Electronically signed by Jacobo Beltran MD in OV> ? 07/25/24 1058 ? DD/ 1035 ? TD/TT: 07/25/24 1005 ? Rn Procedures: ? Procedure Note [place], Image - 07/25/[address] [address] XRay Report Signed Patient: Hussain Cantu MMR#: [id number] : 1985Acct:[id number] Age/Sex: 38 / FADM Date: 07/25/24 Loc: HO.HHCL Attending Dr: Nicci Hardy MD Ordering Physician: Te Allison MD Date of Service: 07/25/24 Procedure(s): XR wrist RT min 3V Accession Number(s): [id number] cc: Te Allison MD EXAMINATION: XR WRIST, [...] 07/25/24 1058 DD/ 1035 TD/TT: 07/25/24 1005 Rn Procedures: us Te Allison MD IMG XR PROCEDURES Edited Result - Final * Syphilis Screen (07/25/2024 10:28 AM EST) Syphilis Screen Nonreactive Nonreactive [facility] Blood 07/25/2024 10:2 8 AM EST 07/25/2024 11:39 AM EST us Odalys Amador MD LAB BLOOD ORDERABLES Fin al Result Performing Organization Address [facility]/ZIP Co de Phone Number [facility] [address] [place] [phone] * TSH W/Reflex to FT4 (07/25/2024 10:28 AM EST) TSH reflex Free T4 1.04 0.32 - 4.0 uIU/mL [facility] Blood Venous blood specimen / Unknown 07/25/2024 10:28 AM EST 07/25/2024 11:39 AM EST us Nicci Hardy MD LAB BLOOD ORDERABLES Final Result Performing Organization Address [facility]/ZIP Co de Phone Number [facility] [address] [place] [phone] * (ABNORMAL) CBC auto differential (07/25/2024 10:28 AM EST) White Blood Count 6.5 4.8 - 10.8 X10*3/uL [facility] Red Blood Count 3.74(L) 4.20 - 5.50 X10*6/uL [facility] Hemoglobin 11.1(L) 12.0 - 16.0 g/dl [facility] Hematocrit 30.3(L) 37.0 - 47.0 % [facility] Mean Corpuscular Volume 81.0 80.0 - 98.0 fL [facility] Mean Corpuscular Hemoglobin 29.7 27.0 - 33.0 pg [facility] Mean Corpuscular HGB Conc 36.6(H) 31.0 - 35.0 g/dl [facility] Red Cell Distribution Width 14.4 11.0 - 16.0 % [facility] Platelet Count 342 160 - 400 X10*3/uL [facility] Mean Platelet Volume 9.8 9.4 - 12.3 fL [facility] Neutrophils Percent Auto 59.6 45 - 73 % [facility] Imm Gran Pct Auto 0.3 0.0 - 0.4 % [facility] Lymphocytes Percent Auto 28.8 20 - 40 % [facility] Monocytes Percent Auto 8.5 2 - 11 % [facility] Eosinophils Percent Auto 2.0 0 - 4 % [facility] Basophils Percent Auto 0.8 0 - 2 % [facility] NRBC Pct Auto 0.0 0.0 - 0.2 /100WBC [facility] Neutrophils Absolute Auto 3.8 2.0 - 8.3 x10*3/uL [facility] Imm Gran Abs Auto 0.02 0.00 - 0.03 X10*3/uL [facility] Lymphocytes Absolute Auto 1.9 1.2 - 4.9 X10*3/uL [facility] Monocytes Absolute Auto 0.6 0.1 - 1.2 X10*3/uL [facility] Eosinophils Absolute Auto 0.1 0.0 - 0.4 X10*3/uL [facility] Basophils Absolute Auto 0.1 0.0 - 0.2 X10*3/uL [facility] NRBC Abs Auto 0.000 0.0 - 0.012 X10*3/uL [facility] Blood Venous blood specimen / Unknown 07/25/2024 10:28 AM EST 07/25/2024 11:39 AM EST us Nicci Hardy MD LAB BLOOD ORDERABLES Final Result Performing Organization Address City/[facility]/ZIP Co de Phone Number [facility] [address] [place] [address] [phone] * HIV-1/2 Antigen and Antibodies, Fourth Generation, with Reflexes (07/25/2024 10:28 AM EST) [facility] HIV AB/AG Nonreactive Nonreactive [facility] Comment:HIV-1 p24 Ag and/or HIV-1/HIV-2 Ab not detected.A test result that is nonreactive does not exclude thepossibility of exposure to or infection with HIV-1 and/orHIV-2. Nonreactive results in this assay for individualswith prior exposure to HIV-1 and/or HIV-2 may be due toantigen and antibody levels that are below the limit ofdetection of this assay.The [employer] HIV Ag/Ab Combo assay result andsupplemental assay results should be interpreted inconjunction with the patient's clinical presentation,history and other laboratory results. If the results areinconsistent with clinical evidence, additional testing issuggested to confirm the result. Blood Venous blood specimen / Unknown 07/25/2024 10:28 AM EST 07/25/2024 11:39 AM EST us Odalys Amador MD LAB BLOOD ORDERABLES Fin al Result Performing Organization Address City/[facility]/ZIP Co de Phone Number [facility] [address] [place] [phone] [phone] * (ABNORMAL) Comprehensive Metabolic Panel (07/25/2024 10:28 AM EST) Sodium 139 135 - 145 mmol/L [facility] Potassium 4.1 3.3 - 5.1 mmol/L [facility] Chloride 110(H) 96 - 108 mmol/L [facility] Carbon Dioxide 27 22 - 29 mmol/L [facility] Anion Gap 6(L) 12 - 20 [facility] Urea Nitrogen (BUN) 7(L) 9 - 16 mg/dL [facility] Creatinine, Serum 0.80 0.5 - 1.4 mg/dL [facility] Estimated Glomerular Filt Rate >60 [facility] Comment:Chronic Kidney Disea se: Estimated GFR < 60 mL/min/1.78o3Wmoxog Kidney Disease: Estimated GFR < 15 mL/min/1.73m2 Glucose 79 60 - 115 mg/dL [facility] Calcium 9.0 8.4 - 10.2 mg/dL [facility] Bilirubin, Total 0.9 0.0 - 1.0 mg/dL [facility] Aspartate Amino Transferase 24 5 - 31 U/L [facility] Alanine Aminotransferase 27 0 - 31 U/L [facility] Total Protein 7.5 6.5 - 8.0 g/dL [facility] Albumin Level 4.1 3.5 - 5.0 g/dL [facility] Alkaline Phosphatase 104 39 - 117 U/L [facility] Blood Venous blood specimen / Unknown 07/25/2024 10:28 AM EST 07/25/2024 11:39 AM EST us Nicci Hardy MD LAB BLOOD ORDERABLES Final Result [facility] [address] [place], [place] [phone] * ECG 12 lead (07/24/2024 7:13 PM EST) Narrative Nicci Hardy MD - 07/24/2024 7:13 PM EST HR 58. Sinus rhythm. [place]: 23 degrees. No sign of LAE, MILI. No hypertrophy. Normal EKG> us Nicci Hardy MD ECG ORDERABLES Final Resul t * ThinPrep Imaging System Pap (05/15/2024 2:20 PM EDT) SOURCE: SEE NOTE [facility] Comment:Cervix Report Status: [facility] Clinical Information: SEE NOTE [facility] Comment:None given LMP: SEE NOTE [facility] Comment:NONE GIVEN Prev. PAP: SEE NOTE [facility] Comment:NONE GIVEN Prev. BX: SEE NOTE [facility] Comment:NONE GIVEN Statement Of Adequacy: SEE NOTE [facility] Comment:Satisfactory for tammie luation.Endocervical/transformation zone componentpresent. General Categorization: [facility] Interpretation/Result: SEE NOTE [facility] Comment:Cytology Results: Ne gative for intraepitheliallesion or malignancy. Cytology Comment SEE NOTE [facility] Comment:This Pap test has be en evaluated with computerassisted technology. Online Tutor: SEE NOTE [facility] Comment:CMG, CT(ASCP)CT scre ening location: [address] [address] Review Online Tutor: [facility] Pathologist [facility] PAP Infection SEE NOTE [facility] Comment:Shift in vaginal juan ra suggestive of bacterialvaginosis. See Note SEE [facility] Comment:EXPLANATORY NOTE:The Pap is a screening test for cervical cancer. It isnot a diagnostic test and is subject to false negativeand false positive results. It is most reliable when asatisfactory sample, regularly obtained, is submittedwith relevant clinical findings and history, and whenthe Pap result is evaluated along with historic andcurrent clinical information.THIS TEST WAS PERFORMED AT:[employer] [address] [id number] CHAUHAN MD 05/15/2024 2:20 PM EDT 05/15/2024 6:47 PM EDT Narrative [facility] - 05/19/2024 11:08 AM EDT SEE SCANNED RESULTS IN EMR us Odalys Amador MD LAB PATHOLOGY ORDERABLES Final Result Performing Organization Address [facility]/ZIP Co de Phone Number [facility] [address] [place] [phone] * HPV mRNA E6/E7 w/Reflex to HPV Genotypes 16, 18/45 (05/15/2024 2:20 PM EDT) HPV nRNA E6/E7 Not Detected [facility] Comment:REFERENCE RANGE: Not DetectedMethodology: Parimutuel Ticket Checker-Mediated AmplificationThis assay detects E6/E7 viral messenger RNA (mRNA) from 14high- risk HPV types(16,18,31,33,35,39,45,51,52,56,58,59,66,68).Cervical sources are required for HPV testing.If a vaginal source from a patient who has had atotal hysterectomy with removal of cervix wassubmitted, please contact the testing laboratoryfor alternative testing options.For additional information, please refer tohttp://education.[employer]/faq/JVK010l4(This link if provided for information/educational purposes only.)THIS TEST PERFORMED AT:[id number] [place] [phone] DIRECTOR: TINA CHAUHAN MD HPV mRNA E6/E7 [facility] HPV 16 RNA [facility] HPV 18/45 RNA [facility] Vaginal Fluid Cervix uteri structure / Unknown 05/15/2024 2:20 PM EDT 05/15/2024 6:47 PM EDT Narrative [facility] - 05/19/2024 11:13 AM EDT Collection Date: [id number] by: DANIELLE Villafuerte: Cervix us Odalys Amador MD LAB CYTOLOGY ORDERABLES Final Result Performing Organization Address City/[facility]/ZIP Co de Phone Number [facility] [address] [place] [phone] * HEPATITIS C AB W/REFL TO HCV RNA, QN, PCR (10/16/2021 10:22 AM EDT) HEPATITIS C ANTIBODY NON-REACT JAMMIE NON-REACT JAMMIE [facility] INDEX 0.01 <1.00 [facility] Comment: ?? HCV antibody was non-reactive. There is no laboratory ?? evidence of HCV infection. ?? In most cases, no further action is required. However, if recent HCV exposure is suspected, a test for HCV RNA (test code 83480) is suggested. ?? For additional information please refer to http://education.[employer]/faq/CAP80g8 (This link is being provided for informational/ educational purposes only.) ?? 10/16/2021 10:2 2 AM EDT Odalys Amador MD HISTORICAL/NON ORDERABLE LABS Final Result [facility] [address] from Last 3 Months or Most Recently Relevant to Health Maintenance [place] [address] C3 Care Teams Wood Gluer Relationship Specialty Start Date End Date Odalys Amador MD [address] [place] [phone] PCP - General Family Medicine 06/24/16
--- OUTSIDE RECORDS SUMMARY | 2024-09-13 14:46 | XMS_ITS | Encounter Summary ---
Author Organization [employer] Address [address] [facility] 7t [place] [address] Care Team Providers Care Ratoprinter Name Role Phone Odalys Amador MD Primary Care Provider + Reason for Referral * Consultation (Routine) - Authorized Specialty Diagnoses / Procedures Referred By Yves callaway Referred To Contact Hand Surgery Diagnoses Mild carpal tunnel syndrome of right wrist Te Allison MD [address] [place] [phone] Phone: tel: fax: [facility] [address] [place] [address] Phone: tel: Referral ID Status Reason Start Date Expiration Date Visits Requested Visits Authorized [id number] Authorized Specialty Services Required 08/18/2024 08/18/2025 6 6 Encounter Details Date Type Department Care Team (Late st Contact Info) Description 08/18/2024 Telephone [facility] [address] [place] [address] [phone] Te Allison MD [address] [place] [phone] Social History Tobacco Use Types Packs/Day Years [...] documented as of this encounter Care Teams Ratoprinter Relationship Specialty Start Date End Date Odalys Amador MD [address] [place] [phone] PCP - General Family Medicine 06/24/16 documented as of this encounter
--- OUTSIDE RECORDS SUMMARY | 2024-09-13 14:46 | XMS_ITS | Encounter Summary ---
Author Organization [employer] Address [address] [facility] 7t [place] [address] Care Team Providers Care Joint Machine Operator Name Role Phone Odalys Amador MD Primary Care Provider + Reason for Visit * Reason Onset Date Comments Med Refill 05/15/2024 Encounter Details Date Type Department Care Team ([facility] st Contact Info) Description 05/15/2024 Refill [facility] [address] [place] [address] Odalys Amador MD [address] [place] [address] Primary insomnia Social History Tobacco Use Types [...] documented as of this encounter Care Teams Joint Machine Operator Relationship Specialty Start Date End Date Odalys Amador MD [address] [place] [phone] PCP - General Family Medicine 06/24/16 documented as of this encounter
--- OUTSIDE RECORDS SUMMARY | 2024-09-13 14:46 | XMS_ITS | Clinical Summary ---
Author Organization [employer] [facility] Address [address] [place] [address] Care Team Providers Care Tie Sawyer Name Role Phone Unavailable Primary Care Provider Unavailabl e Social History Tobacco Use Types Packs/Day Years Used Date Smoking Tobacco: Never Assessed Sex and Gender Information Value Date Recorded Sex Assigned at Not on file Gender Identity Not on file Sexual Orientation Not on file Plan of Treatment Not on file
--- OUTSIDE RECORDS SUMMARY | 2024-09-13 14:46 | XMS_ITS | Encounter Summary ---
Author Organization [employer] Address [address] [facility] 7t [place] [address] Care Team Providers Care Corporate Buyer Name Role Phone Odalys Amador MD Primary Care Provider + Encounter Details Date Type Department Care Team (Late st Contact Info) Description 07/25/2024 Orders Only [facility] [address] [place], [place] [phone] Nicci Hardy MD [address] [place] [address] Microcytic anemia (Primary Dx) Social History Tobacco [...] documented as of this encounter Care Teams Corporate Buyer Relationship Specialty Start Date End Date Odalys Amador MD [address] [place] [address] PCP - General Family Medicine 06/24/16 documented as of this encounter
--- OUTSIDE RECORDS SUMMARY | 2024-09-13 14:46 | XMS_ITS | Encounter Summary ---
Author Organization [employer] Address [address] [place] [address] Care Team Providers Care Continuity Editor Name Role Phone Odalys Amador MD Primary Care Provider + Reason for Referral * Consultation (Routine) - Authorized Specialty Diagnoses / Procedures Referred By Yves callaway Referred To Contact Cardiology Diagnoses Palpitations Bradycardia Nicci Hardy MD [address] [place] [address] Phone: tel: fax: Torsten Craft MD [address] [place] [address] Phone: tel: fax: Referral ID Status Reason Start Date Expiration Date Visits Requested Visits Authorized [id number] Authorized Specialty Services Required 08/15/2024 08/15/2025 6 6 Encounter Details Date Type Department Care Team ([facility] Contact Info) Description 08/15/2024 Telephone [facility] [address] [place], [place] [phone] Nicci Hardy MD [address] [place] [address] Social History Tobacco Use Types Packs/Day Years [...] She 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 Referral will be generated. documented in this [...] documented as of this encounter Care Teams Continuity Editor Relationship Specialty Start Date End Date Odalys Amador MD [address] [place] [phone] PCP - General Family Medicine 06/24/16 documented as of this encounter
--- OUTSIDE RECORDS SUMMARY | 2024-09-13 14:46 | XMS_ITS | Encounter Summary ---
Author Organization [employer] Address [address] [facility] 7t [place] [address] Care Team Providers Care Desk Representative Name Role Phone Odalys Amador MD Primary Care Provider + Reason for Visit * Reason Onset Date Comments Call Back Request 08/14/2024 Results 08/14/2024 Encounter Details Date Type Department Care Team ([facility] st Contact Info) Description 08/14/2024 Telephone [facility] [address] [place], [place] [phone] Odalys Amador MD [address] [place] [address] Call Back Request; Results Social History Tobacco [...] one hadcalled her in regards any results. [phone] documented in this encounter Plan of Treatment Not on file documented as of this encounter Visit Diagnoses Not on filedocumented in this encounter Additional Health Concerns Assessment Noted Time PHQ-9 Depression Total Score: 5 02/25/20 24 10:10 AM EDT documented as of this encounter Care Teams Desk Representative Relationship Specialty Start Date End Date Odalys Amador MD [address] [place] [address] PCP - General Family Medicine 06/24/16 documented as of this encounter
--- OUTSIDE RECORDS SUMMARY | 2024-09-13 14:46 | XMS_ITS | Encounter Summary ---
Author Organization [employer] Address [address] [facility] 7t [place] [address] Care Team Providers Care Scroll Assembler Name Role Phone Odalys Amador MD Primary Care Provider + Reason for Visit * Reason Comments Med Refill Encounter Details Date Type Department Care Team ([facility] Contact Info) Description 05/02/2024 Refill [facility] [address] [place] [address] Odalys Amador MD [address] [place] [address] Primary insomnia Social History Tobacco Use Types [...] documented as of this encounter Care Teams Scroll Assembler Relationship Specialty Start Date End Date Odalys Amador MD [address] [place] [address] PCP - General Family Medicine 06/24/16 documented as of this encounter
--- OUTSIDE RECORDS SUMMARY | 2024-09-13 14:46 | XMS_ITS | Encounter Summary ---
Author Organization [employer] Address [address] [facility] 7t [place] [address] Care Team Providers Care Servicer Coin Machines Name Role Phone Odalys Amador MD Primary Care Provider + Reason for Visit * Reason Comments Med Refill Encounter Details Date Type Department Care Team ([facility] st Contact Info) Description 01/12/2024 Refill [facility] [address] [place] [address] Jj Adler MD [address] [place] [address] Social History Tobacco Use Types Packs/Day Years [...] t he electric, gas, oil or water [employer] threatened to shut off services in your [...] documented as of this encounter Care Teams Servicer Coin Machines Relationship Specialty Start Date End Date Odalys Amador MD [address] [place] [address] PCP - General Family Medicine 06/24/16 documented as of this encounter
--- OUTSIDE RECORDS SUMMARY | 2024-09-13 14:46 | XMS_ITS | Encounter Summary ---
Author Organization [employer] Address [address] [facility] 7t [place] [address] Care Team Providers Care Certified Personal Trainer Name Role Phone Odalys Amador MD Primary Care Provider + Reason for Visit * Reason Onset Date Comments Med Refill 06/28/2024 Encounter Details Date Type Department Care Team ([facility] st Contact Info) Description 06/28/2024 Refill [facility] [address] [place] [address] Odalys Amador MD [address] [place] [address] Primary insomnia Social History Tobacco Use Types [...] documented as of this encounter Care Teams Certified Personal Trainer Relationship Specialty Start Date End Date Odalys Amador MD [address] [place] [address] PCP - General Family Medicine 06/24/16 documented as of this encounter
[2024-09-26 08:30] VITALS: BP 109/65; PULSE 69; RESP 18; TEMP 36.8; O2SAT 100; BMI 31.6
--- NOTE | 2024-09-26 09:04 | P.OP_ITS ---
Operative Note Operative Note Date of Service: 09/26/24 Narrative: Preop diagnosis: 1. Right Carpal tunnel syndrome Postop diagnosis: same Procedure: 1. Right Carpal tunnel release Surgeon: Lizeth Armijo MD [employer] Supervisor: Seferino GUILLEN Anesthesia: local block using 1% lidocaine with epinephrine Findings: Thickened transverse carpal ligament. EBL: Less than 5 mL Specimens: None Complications: None Disposition: Brought to recovery room in stable condition Plan: Follow-up for 10-14 days for wound check and suture removal Indications: The patient is 39 years old, with right carpal tunnel syndrome that has been unresponsive to nonoperative management. The risks and benefits of operative treatment including but not limited to risk of damage to blood vessels, nerves, tendons, infection, persistent pain, persistent symptoms, or possible need for additional surgery were discussed with the patient and the patient wishes to proceed with surgery. Procedure: Once consent was obtained a local block was performed using a combination of 1% lidocaine with epinephrine. The patient was then brought back to the operating suite and placed on the operative table in supine position. The right upper extremity was prepped and draped in a standard surgical fashion. Once assured that we had a good block, a 2.0 cm longitudinal incision was made centered over the carpal tunnel. The incision was made through the skin to the subcutaneous tissues using a #15 blade. Dissection was made down to the level of the transverse carpal ligament with care being taken to protect the palmar cutaneous nerve. Once the transverse carpal ligament was clearly visualized, a longitudinal incision was made in the transverse carpal ligament 1st using a #15 blade, then using tenotomy scissors under direct visualization. Care was taken to look for and protect the motor branch of the median nerve when seen in this area. Once satisfied with our carpal tunnel release the wound was copiously irrigated with normal saline and hemostasis was obtained with a brief period of local pressure. The skin edges were reapproximated with some 5.0 nylon suture material and a sterile dressing was applied. The patient appears to have tolerated the procedure well and with no complications. All digits were well vascularized at the conclusion of the case.
--- NOTE | 2024-09-26 09:04 | MHC.SHP ---
Pre-Procedural Eval Section A - 24 Hr Update-Section A only Date of Service: 09/26/24 The patient is an INPATIENT: No Changes since office visit: No Cold of Flu in the past 2 weeks, No New Medical Problems, No Changes in Medication and No Patient answered all questions The patient has been examined within 24 hours of the surgical procedure. The History & Physical has been completed within 30 days and I have reviewed it.: Yes Section B - Complete if H&P > 30 days Chief Complaint: Carpal tunnel syndrome, right upper limb Allergies: Allergies Allergy/AdvReac Type Severity Reaction Status Date / Time No Known Allergies Allergy Verified 09/26/24 08:53 [No Known Allergies*] Plan Diagnosis/Plan: Unchanged I have reviewed the history and physical and performed a pertinent physical examination on my patient. No changes have occurred unless specified. Time Spent With Patient Time: Total time managing care of this patient today ____ minutes.
[2024-09-26 09:50] VITALS: BP 103/60; PULSE 63; RESP 16; TEMP 36.3; O2SAT 99
== END 2024-09-26 09:55 | disposition home or self-care (01) ==
PROVIDERS: PCP Internal Medicine; Visit Provider Orthopaedic Surgery
PROC: (CPT 64721; principal; 2024-09-26 10:00)
DX: G56.01 Carpal tunnel syndrome, right upper limb (principal); Z79.899 Other long term (current) drug therapy; Z90.49 Acquired absence of other specified parts of digestive tract
CPT/HCPCS: 64721; J0171; J2003

== ENCOUNTER → 2024-09-26 07:49 | Outpatient (BNV) | payer MEDICAID, SELFPAY | PROVIDERS: PCP Internal Medicine; Visit Provider Orthopaedic Surgery | DX: G56.01 Carpal tunnel syndrome, right upper limb (principal) | CPT/HCPCS: 64721 ==

== ENCOUNTER 2024-10-09 14:52 | Outpatient (AMB) | payer MEDICAID, SELFPAY ==
--- NOTE | 2024-10-09 14:54 | MHC.OFFVIS ---
Vital Signs 10/09/24 15:04 Handedness Right Intake Visit Reasons: PO RT CTR 09/26/24 AR Intake Note: Hussain is a 38 year old right hand dominant female who presents today for a post operative visit s/p right carpal tunnel release DOS: 09/26/24 w/ Dr Lizeth Armijo. Patient reports numbness and tingling has not improved. Suture removed and steri strips applied. Allergies No Known Allergies [No Known Allergies*] Allergy (Verified 10/09/24 15:03) HPI HPI PO RT CTR 09/26/24 AR: Details: Hussain is a 38 year old right hand dominant female who presents today for a post operative visit s/p right carpal tunnel release DOS: 09/26/24 w/ Dr Lizeth Armijo. Patient reports numbness and tingling has not improved. The patient also reports some pain the wrist just distal to the incision site. Suture removed and steri strips applied. 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 Neuro: Diminished sensation in the median nerve distribution of the right hand Normal sensation of the tips of the other digits of the right Vascular: Cap refill brisk Pain: Patient reports mild tenderness to palpation both radial and ulnar to incision site in the volar right wrist No pain with range of motion of the right hand ROM: Patient was able to make a closed fist and extend all digits of the right hand fully Skin: Well approximated and well healing incision site noted on the volar right wrist No lacerations or abrasions. General: No ecchymosis, erythema, or evidence of infection. Psych: Appears grossly normal Affect normal Attitude cooperative Assessment & Plan Assessment & Plan (1) Right carpal tunnel syndrome: Code(s): G56.01 - Carpal tunnel syndrome, right upper limb Category: Medical Plan 1. Status post right carpal tunnel release DOS 09/26/2024 Patient appears to be recovering well postoperatively Patient is educated about the typical recovery course This time, patient was educated that it can take up to 9 months for sensation to return after carpal tunnel release Patient expresses understanding of this Patient will follow-up as needed with any acute concerns Coding Level of Care Code Global (56060) Diagnoses Right carpal tunnel syndrome G56.01
--- OUTSIDE RECORDS SUMMARY | 2024-10-09 17:46 | XMS_ITS | Encounter Summary ---
Author Organization [employer] Address [address] [facility] 7t [place] [address] Care Team Providers Care Food Specialist Name Role Phone Odalys Amador MD Primary Care Provider + Encounter Details Date Type Department Care Team ([facility] st Contact Info) Description 09/29/2024 Population Health Risk Score [facility] (C3) Department [address] [facility] [address] [place] [phone] Provider, Population Health Generic Social History Tobacco Use Types Packs/Day Years [...] documented as of this encounter Care Teams Food Specialist Relationship Specialty Start Date End Date Odalys Amador MD [address] [place] [phone] PCP - General Family Medicine 06/24/16 documented as of this encounter
--- OUTSIDE RECORDS SUMMARY | 2024-10-09 17:46 | XMS_ITS | Encounter Summary ---
Author Organization [employer] Address [address] [facility] 7t [place] [address] Care Team Providers Care Physician Office Specialist Name Role Phone Odalys Amador MD Primary Care Provider + Reason for Visit * Reason Onset Date Comments Med Refill 06/28/2024 Encounter Details Date Type Department Care Team ([facility] st Contact Info) Description 06/28/2024 Refill [facility] [address] [place] [phone] Odalys Amador MD [address] [place] [address] Primary insomnia Social History Tobacco Use Types [...] documented as of this encounter Care Teams Physician Office Specialist Relationship Specialty Start Date End Date Odalys Amador MD [address] [place] [phone] PCP - General Family Medicine 06/24/16 documented as of this encounter
--- OUTSIDE RECORDS SUMMARY | 2024-10-09 17:46 | XMS_ITS | Encounter Summary ---
Author Organization [employer] Address [address] [facility] 7t [place] [address] Care Team Providers Care Cartographic Drafter Name Role Phone Odalys Amador MD Primary Care Provider + Encounter Details Date Type Department Care Team (Late st Contact Info) Description 07/25/2024 Orders Only [facility] [address] [place], [place] [phone] Nicci Hardy MD [address] [place] [address] Microcytic anemia (Primary Dx) Social History Tobacco [...] documented as of this encounter Care Teams Cartographic Drafter Relationship Specialty Start Date End Date Odalys Amador MD [address] [place] [phone] PCP - General Family Medicine 06/24/16 documented as of this encounter
--- OUTSIDE RECORDS SUMMARY | 2024-10-09 17:46 | XMS_ITS | Encounter Summary ---
Author Organization [employer] Address [address] [facility] 7t [place] [address] Care Team Providers Care Streetcar Motorman Name Role Phone Odalys Amador MD Primary Care Provider + Reason for Visit * Reason Comments Med Refill Encounter Details Date Type Department Care Team ([facility] st Contact Info) Description 01/12/2024 Refill [facility] [address] [place] [address] Jj Adler MD [address] [place] [address] Social History Tobacco Use Types Packs/Day Years [...] t he electric, gas, oil or water [employer] threatened to shut off services in your [...] documented as of this encounter Care Teams Streetcar Motorman Relationship Specialty Start Date End Date Odalys Amador MD [address] [place] [address] PCP - General Family Medicine 06/24/16 documented as of this encounter
--- OUTSIDE RECORDS SUMMARY | 2024-10-09 17:46 | XMS_ITS | Clinical Summary ---
Author Organization [employer] Address [address] [place] [address] 7t [place] [address] Care Team Providers Care Pets And Pet Supplies Salesperson Name Role Phone Odalys Amador MD Primary [...] 5, pt agreed to start psychotherapy. I bmx rider her information regarding [facility] for her to make an appointment with [...] EDT): Pt needs to schedule appointment with [facility], information given to pt again Counseled [...] Encounters Date Type Department Care Team Description 09/29/2024 Population Health Risk Score [facility] () Department [address] [phone] Provider, Population Health Generic 08/18/2024 Telephone [facility] [address] [place] [phone] Te Allison MD 08/15/2024 Telephone [facility] [address] [place] [address] Nicci Hardy MD 08/14/2024 Telephone [facility] [address] [place] [phone] Odalys Amador MD Call Back Request; Results 07/26/2024 Telephone [facility] [address] [place] [address] Nicci Hardy MD 07/25/2024 Orders Only [facility] [address] [place] [address] Nicci Hardy MD Microcytic anemia (Primary Dx) 07/24/2024 6:40 PM EST Office Visit [facility] [address] [place] [phone] Nicci Hardy MD Dizziness and giddiness (Primary Dx); Palpitations; Bradycardia 07/24/2024 Telephone [facility] 230 [facility], [place] [phone] Odalys Amador MD Nurse Triage 07/24/2024 Refill [facility] [address] [place], [place] [phone] Odalys Amador MD 07/22/2024 Refill [facility] [address] [place], [place] [phone] Odalys Amador MD Primary insomnia from Last 3 Months Immunizations Name Administration [...] EST Narrative 07/25/2024 11:01 AM EST ? [facility] ?[address] ?[place] [address] ?XRay Report ? Signed ? Patient: Pepe,Hussain M ?MR#: [id number] ?? [id number] ? : 1985 ?Acct:[id number] ? Age/Sex: 38 / F ?ADM Date: //25 ? Loc: HO.[facility]CL ? Attending Dr: Nicci Hardy MD ? Ordering Physician: Te Allison MD ?? Date of Service: 07/25/24 ?? Procedure(s): XR wrist RT min 3V ?? Accession Number(s): [id number] ? cc: Te Allison MD ? EXAMINATION: [...] DD/ 1035 ? TD/TT: 07/25/24 1005 ? Handkerchief Folder: ? Procedure Note [place], Image - 07/25/[address] [address] XRay Report Signed Patient: Hussain Cantu MMR#: [id number] : 1985Acct:[id number] Age/Sex: 38 / FADM Date: 07/25/24 Loc: HO[facility] Attending Dr: Nicci Hardy MD Ordering Physician: Te Allison MD Date of Service: 07/25/24 Procedure(s): XR wrist RT min 3V Accession Number(s): [id number] cc: Te Allison MD EXAMINATION: XR WRIST, [...] Jacobo Stanton MD 07/25/2024 10:58 AM EST Dictated By: Jacobo Nuñez MD Signed By: <Electronically signed by Jacobo Beltran MDin OV> 07/25/24 1058 DD/ 1035 TD/TT: 07/25/24 1005 Handkerchief Folder: us Te Allison MD IMG XR PROCEDURES Edited Result - Final * Syphilis Screen (07/25/2024 10:28 AM EST) Pathologist [facility] Syphilis Screen Nonreactive Nonreactive [facility] Blood 07/25/2024 10:2 8 AM EST 07/25/2024 11:39 AM EST us Odalys Amador MD LAB BLOOD ORDERABLES Fin al Result Performing Organization Address City/[facility]/ZIP Co de Phone Number [facility] [address] [place] [phone] * TSH W/Reflex to FT4 (07/25/2024 10:28 AM EST) [facility] TSH reflex Free T4 1.04 0.32 - 4.0 uIU/mL [facility] Blood Venous blood specimen / Unknown 07/25/2024 10:28 AM EST 07/25/2024 11:39 AM EST us Nicci Hardy MD LAB BLOOD ORDERABLES Final Result Performing Organization Address [facility] Co de Phone Number [facility] [address] [place] [phone] * (ABNORMAL) CBC auto differential (07/25/2024 10:28 AM EST) [facility] White Blood Count 6.5 4.8 - 10.8 X10*3/uL [facility] Red Blood Count 3.74(L) 4.20 - 5.50 X10*6/uL [facility] Hemoglobin 11.1(L) 12.0 - 16.0 g/dl [facility] Hematocrit 30.3(L) 37.0 - 47.0 % [facility] Mean Corpuscular Volume 81.0 80.0 - 98.0 fL [facility] Mean Corpuscular Hemoglobin 29.7 27.0 - 33.0 pg [facility] Mean Corpuscular HGB Conc 36.6(H) 31.0 - 35.0 g/dl [facility] Red Cell Distribution Width 14.4 11.0 - 16.0 % [facility] Platelet Count 342 160 - 400 X10*3/uL [facility] Mean Platelet Volume 9.8 9.4 - 12.3 fL [facility] Neutrophils Percent Auto 59.6 45 - 73 % [facility] Imm Gran Pct Auto 0.3 0.0 - 0.4 % [facility] Lymphocytes Percent Auto 28.8 20 - 40 % [facility] Monocytes Percent Auto 8.5 2 - 11 % [facility] Eosinophils Percent Auto 2.0 0 - 4 % [facility] Basophils Percent Auto 0.8 0 - 2 % [facility] NRBC Pct Auto 0.0 0.0 - 0.2 /100WBC [facility] Neutrophils Absolute Auto 3.8 2.0 - 8.3 x10*3/uL [facility] Imm Gran Abs Auto 0.02 0.00 - 0.03 X10*3/uL [facility] Lymphocytes Absolute Auto 1.9 1.2 - 4.9 X10*3/uL [facility] Monocytes Absolute Auto 0.6 0.1 - 1.2 X10*3/uL [facility] Eosinophils Absolute Auto 0.1 0.0 - 0.4 X10*3/uL [facility] Basophils Absolute Auto 0.1 0.0 - 0.2 X10*3/uL [facility] NRBC Abs Auto 0.000 0.0 - 0.012 X10*3/uL [facility] Blood Venous blood specimen / Unknown 07/25/2024 10:28 AM EST 07/25/2024 11:39 AM EST us Nicci Hardy MD LAB BLOOD ORDERABLES Final Result [facility] [address] [place] [phone] [phone] * HIV-1/2 Antigen and Antibodies, Fourth Generation, with Reflexes (07/25/2024 10:28 AM EST) Pathologist [facility] HIV AB/AG Nonreactive Nonreactive [facility] Comment:HIV-1 p24 Ag and/or HIV-1/HIV-2 Ab not detected.A test result that is nonreactive does not exclude thepossibility of exposure to or infection with HIV-1 and/orHIV-2. Nonreactive results in this assay for individualswith prior exposure to HIV-1 and/or HIV-2 may be due toantigen and antibody levels that are below the limit ofdetection of this assay.The [employer] HIV Ag/Ab Combo assay result andsupplemental assay results should be interpreted inconjunction with the patient's clinical presentation,history and other laboratory results. If the results areinconsistent with clinical evidence, additional testing issuggested to confirm the result. Blood Venous blood specimen / Unknown 07/25/2024 10:28 AM EST 07/25/2024 11:39 AM EST us Odalys Amador MD LAB BLOOD ORDERABLES Fin al Result [facility] [address] [place] [phone] * (ABNORMAL) Comprehensive Metabolic Panel (07/25/2024 10:28 AM EST) Pathologist [facility] Sodium 139 135 - 145 mmol/L [facility] Potassium 4.1 3.3 - 5.1 mmol/L [facility] Chloride 110(H) 96 - 108 mmol/L [facility] Carbon Dioxide 27 22 - 29 mmol/L [facility] Anion Gap 6(L) 12 - 20 [facility] Urea Nitrogen (BUN) 7(L) 9 - 16 mg/dL [facility] Creatinine, Serum 0.80 0.5 - 1.4 mg/dL [facility] Estimated Glomerular Filt Rate >60 [facility] Comment:Chronic Kidney Disea se: Estimated GFR < 60 mL/min/1.50j0Icusrs Kidney Disease: Estimated GFR < 15 mL/min/1.73m2 Glucose 79 60 - 115 mg/dL [facility] Calcium 9.0 8.4 - 10.2 mg/dL [facility] Bilirubin, Total 0.9 0.0 - 1.0 mg/dL [facility] Aspartate Amino Transferase 24 5 - 31 U/L [facility] Alanine Aminotransferase 27 0 - 31 U/L [facility] Total Protein 7.5 6.5 - 8.0 g/dL [facility] Albumin Level 4.1 3.5 - 5.0 g/dL [facility] Alkaline Phosphatase 104 39 - 117 U/L [facility] Blood Venous blood specimen / Unknown 07/25/2024 10:28 AM EST 07/25/2024 11:39 AM EST us Nicci Hardy MD LAB BLOOD ORDERABLES Final Result Performing Organization Address City/State/[facility] Co de Phone Number [facility] [address] [place] [phone] * ECG 12 lead (07/24/2024 7:13 PM EST) Narrative Nicci Hardy MD - 07/24/2024 7:13 PM EST HR 58. Sinus rhythm. [place]: 23 degrees. No sign of LAE, MILI. No hypertrophy. Normal EKG> us Nicci Hardy MD ECG ORDERABLES Final Resul t * ThinPrep Imaging System Pap (05/15/2024 2:20 PM EDT) SOURCE: SEE NOTE [facility] Comment:Cervix Report Status: TNP [facility] Clinical Information: SEE NOTE [facility] Comment:None given LMP: SEE NOTE [facility] Comment:NONE GIVEN Prev. PAP: SEE NOTE [facility] Comment:NONE GIVEN Prev. BX: SEE NOTE [facility] Comment:NONE GIVEN Statement Of Adequacy: SEE NOTE [facility] Comment:Satisfactory for tammie luation.Endocervical/transformation zone componentpresent. General Categorization: [facility] Interpretation/Result: SEE NOTE [facility] Comment:Cytology Results: Ne gative for intraepitheliallesion or malignancy. Cytology Comment SEE NOTE [facility] Comment:This Pap test has be en evaluated with computerassisted technology. Senior Sales Associate: SEE NOTE [facility] Comment:CMG, CT(ASCP)CT scre ening location: [address] [address] Review Senior Sales Associate: [facility] Pathologist [facility] PAP Infection SEE NOTE [facility] Comment:Shift in vaginal juan ra suggestive of bacterialvaginosis. See Note SEE NOTE [facility] Comment:EXPLANATORY NOTE:The Pap is a screening test for cervical cancer. It isnot a diagnostic test and is subject to false negativeand false positive results. It is most reliable when asatisfactory sample, regularly obtained, is submittedwith relevant clinical findings and history, and whenthe Pap result is evaluated along with historic andcurrent clinical information.THIS TEST WAS PERFORMED AT:[facility] [address] [id number] CHAUHAN MD 05/15/2024 2:20 PM EDT 05/15/2024 6:47 PM EDT Narrative [facility] - 05/19/2024 11:08 AM EDT SEE SCANNED RESULTS IN EMR us Odalys Amador MD LAB PATHOLOGY ORDERABLES Final Result [facility] [address] [place] [phone] * HPV mRNA E6/E7 w/Reflex to HPV Genotypes 16, 18/45 (05/15/2024 2:20 PM EDT) HPV nRNA E6/E7 Not Detected [facility] Comment:REFERENCE RANGE: Not DetectedMethodology: [employer] Cell[employer]er Machine-Mediated AmplificationThis assay detects E6/E7 viral messenger RNA (mRNA) from 14high- risk HPV types(16,18,31,33,35,39,45,51,52,56,58,59,66,68).Cervical sources are required for HPV testing.If a vaginal source from a patient who has had atotal hysterectomy with removal of cervix wassubmitted, please contact the testing laboratoryfor alternative testing options.For additional information, please refer [email or web address] Backlinks/faq/FEO367g6(This link if provided for information/educational purposes only.)THIS TEST PERFORMED AT:[email or web address] [address] [phone] DIRECTOR: TINA CHAUHAN MD HPV mRNA E6/E7 [facility] HPV 16 RNA [facility] HPV 18/45 RNA [facility] Vaginal Fluid Cervix uteri structure / Unknown 05/15/2024 2:20 PM EDT 05/15/2024 6:47 PM EDT Narrative [facility] - 05/19/2024 11:13 AM EDT Collection Date: [id number] by: DANIELLE Villafuerte: Cervix Odalys Amador MD LAB CYTOLOGY ORDERABLES Final Result [facility] [address] [place] [address] [phone] * HEPATITIS C AB W/REFL TO HCV RNA, QN, PCR (10/16/2021 10:22 AM EDT) HEPATITIS C ANTIBODY NON-REACT [facility] NON-REACT [facility] INDEX 0.01 <1.00 [facility] Comment: ?? HCV antibody was non-reactive. There is no laboratory ?? evidence of HCV infection. ?? In most cases, no further action is required. However, if recent HCV exposure is suspected, a test for HCV RNA (test code 08583) is suggested. ?? For additional information please refer to http://education.Monitor Backlinks/faq/ZAX03s5 (This link is being provided for informational/ educational purposes only.) ?? 10/16/2021 10:2 2 AM EDT Odalys Amador MD HISTORICAL/NON ORDERABLE LABS Final Result [facility] [address] from Last 3 Months or Most Recently Relevant to Health Maintenance Insurance [employer] Care Teams Pets And Pet Supplies Salesperson Relationship Specialty Start Date End Date Odalys Amador MD [address] [place] [address] PCP - General Family Medicine 06/24/16
--- OUTSIDE RECORDS SUMMARY | 2024-10-09 17:46 | XMS_ITS | Clinical Summary ---
Author Organization [facility] Address [address] [place] [address] Care Team Providers Care Creping Machine Operator Name Role Phone Unavailable Primary Care Provider [...]
--- OUTSIDE RECORDS SUMMARY | 2024-10-09 17:46 | XMS_ITS | Clinical Summary ---
Author Organization [employer] [facility] Address [address] [place] [address] Care Team Providers Care Mail List Librarian Name Role Phone Unavailable Primary Care Provider Unavailabl e Social History Tobacco Use Types Packs/Day Years Used Date Smoking Tobacco: Never Assessed Sex and Gender Information Value Date Recorded Sex Assigned at Not on file Gender Identity Not on file Sexual Orientation Not on file Plan of Treatment Not on file
--- OUTSIDE RECORDS SUMMARY | 2024-10-09 17:46 | XMS_ITS | Encounter Summary ---
Author Organization [employer] Address [address] [facility] 7t [place] [address] Care Team Providers Care E Mail System Administrator Name Role Phone Odalys Amador MD Primary Care Provider + Reason for Visit * Reason Onset Date Comments Call Back Request 08/14/2024 Results 08/14/2024 Encounter Details Date Type Department Care Team ([facility] st Contact Info) Description 08/14/2024 Telephone [facility] [address] [place], [place] [phone] Odalys Amador MD [address] [place] [address] Call Back Request; Results Social History Tobacco [...] one hadcalled her in regards any results. [phone] documented in this encounter Plan of Treatment Not on file documented as of this encounter Visit Diagnoses Not on filedocumented in this encounter Additional Health Concerns Assessment Noted Time PHQ-9 Depression Total Score: 5 02/25/20 24 10:10 AM EDT documented as of this encounter Care Teams E Mail System Administrator Relationship Specialty Start Date End Date Odalys Amador MD [address] [place] [phone] PCP - General Family Medicine 06/24/16 documented as of this encounter
--- OUTSIDE RECORDS SUMMARY | 2024-10-09 17:46 | XMS_ITS | Encounter Summary ---
Author Organization [employer] Address [address] [facility] 7t [place] [address] Care Team Providers Care Marketing Operations Manager Name Role Phone Odalys Amador MD Primary Care Provider + Reason for Visit * Reason Comments Med Refill Encounter Details Date Type Department Care Team ([facility] Contact Info) Description 05/02/2024 Refill [facility] [address] [place] [address] Odalys Amador MD [address] [place] [address] Primary insomnia Social History Tobacco Use Types [...] documented as of this encounter Care Teams Marketing Operations Manager Relationship Specialty Start Date End Date Odalys Amador MD [address] [place] [phone] PCP - General Family Medicine 06/24/16 documented as of this encounter
--- OUTSIDE RECORDS SUMMARY | 2024-10-09 17:46 | XMS_ITS | Encounter Summary ---
Author Organization [employer] Address [address] [facility] 7t [place] [address] Care Team Providers Care Pickle Maker Name Role Phone Odalys Amador MD Primary Care Provider + Reason for Visit * Reason Onset Date Comments Med Refill 05/15/2024 Encounter Details Date Type Department Care Team ([facility] st Contact Info) Description 05/15/2024 Refill [facility] [address] [place] [address] Odalys Amador MD [address] [place] [address] Primary insomnia Social History Tobacco Use Types [...] documented as of this encounter Care Teams Pickle Maker Relationship Specialty Start Date End Date Odalys Amador MD [address] [place] [phone] PCP - General Family Medicine 06/24/16 documented as of this encounter
== END 2024-10-09 15:12 | disposition home or self-care (01) ==
LOC: HO.HOS 14:52
PROVIDERS: PCP Internal Medicine
DX: G56.01 Carpal tunnel syndrome, right upper limb (principal)
CPT/HCPCS: 99024

== ENCOUNTER → 2024-10-09 14:52 | Outpatient (BNVA) | payer MEDICAID, SELFPAY | PROVIDERS: PCP Internal Medicine | DX: R20.0 Anesthesia of skin (principal); R20.2 Paresthesia of skin; M25.531 Pain in right wrist; Z48.811 Encounter for surgical aftercare following surgery on the nervous system; Z98.890 Other specified postprocedural states | CPT/HCPCS: 99212 ==

== ENCOUNTER 2025-01-04 08:54 | Outpatient (AMB) | payer MEDICAID, SELFPAY ==
--- NOTE | 2025-01-04 09:00 | MHC.OFFVIS ---
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 She had a Holter monitor done at that time which showed frequent isolated PVCs with a burden of 1.6%. No other arrhythmias and no sustained arrhythmias were noted at this time. Patient says she gets these symptoms about 3 times a week mostly at nighttime when she is trying to rest. Symptoms are strong heartbeat associated with discomfort in his chest. Symptoms last for few sec. she has not identified any clear triggers. She denies any significant stress or any other substances or any changes in his health that have caused her to have these symptoms. She denies any strong family history of premature coronary artery disease. She denies any exertional chest pain or shortness of breath. She had lab work done in July after she had onset of symptoms which all appear to be within normal limits. She has no symptoms of lightheadedness or syncope. No other heart failure symptoms. 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 Review of Systems Const Denies chills, Denies daytime sleepiness, Denies fatigue, Denies fever(s), Denies frequent falls, Denies poor appetite, Denies snoring, Denies stops breathing during sleep, Denies weakness, Denies weight gain and Denies weight loss Eyes Denies loss of vision ENT Denies dizziness and Denies hearing loss Card Denies chest pain, Denies claudication, Denies leg edema, Denies lightheadedness, Reports palpitations, Denies dyspnea, Denies dyspnea on exertion and Denies orthopnea Resp Denies cough, Denies excessive phlegm production, Denies dyspnea, Denies dyspnea on exertion, Denies snoring and Denies wheezing GI Denies abdominal pain, Denies hematochezia, Denies change in bowel habits, Denies nausea and Denies vomiting Denies urinary frequency and Denies dysuria Musc Denies arthralgias, Denies muscle weakness, Denies numbness and Denies other (frequent falls) Skin/Breast Denies nail changes and Denies rash Neuro Denies Abnormal speech present, Denies dizziness, Denies frequent falls, Denies loss of vision, Denies memory loss, Denies numbness and Denies weakness Psych Denies depression and Denies memory loss Endo Denies fatigue and Reports palpitations Reji/Lymph Reports easy bruising and Reports other (anemia) Aller/Immun Denies wheezing Physical Exam Vital Signs: Last Vital Signs Pulse 70 01/04/25 09:01 BP 124/78 01/04/25 09:01 BMI result Body Mass Index 32.6 Const General: cooperative, comfortable, no acute distress, alert, awake and Physically active Nutritional Appearance: obese Orientation/consciousness: patient oriented x3 Limitations: no limitations HEENT Head: Yes normocephalic and Yes atraumatic Neck Neck: Yes trachea midline, Yes supple and Yes no JVD Resp Effort & Inspection: normal respiratory effort Auscultation: clear to auscultation bilaterally Cardio Jugular venous distension: no JVD Palpation: normal PMI Rate: regular rate Rhythm: regular rhythm Heart sounds: S1 normal heart sound present, S2 normal heart sound present, no click, no gallops, no murmurs and no rubs GI Auscultation: normal bowel sounds Skin General skin exam: no rashes or lesions noted Neuro General: patient oriented x3 and no focal motor deficits Speech: No Abnormal speech present Extrem General: Yes no clubbing, cyanosis or edema Psych Appearance: grossly normal Office Procedures EKG Details: EKG shows normal sinus rhythm with nonspecific ST T wave changes 26767-Thnjnmybiggoqeymb, Complete Assessment & Plan Assessment & Plan (1) PVCs (premature ventricular contractions): Code(s): I49.3 - Ventricular premature depolarization Category: Medical Plan: Patient has palpitation most consistent with isolated PVCs noted on the Holter monitor as well with frequent episodes at 1.6% burden. Overall if structure of the heart is normal carries benign prognosis and this was discussed with the patient. I have suggested her to obtain a echocardiogram as well as a stress test to assess for presence of any structural heart disease. If she has no significant structural heart disease will carry even more benign prognosis. Was discussed with the patient about the same. Further treatment based on finding of the testing. We discussed that this can be treated if she remains highly symptomatic with beta-kristina therapy. We discussed about avoidance of stimulants. We also discussed about stress mitigation strategies. She understands agrees. General lifestyle modification with increase exercise and weight loss was discussed as well. Follow up in the clinic in 2 months time, sooner p.r.n.. Thank you for allowing me to partake in her care Orders: Orders CA echo transthoracic complete Today I49.3 - Ventricular premature depolarization CA stress test Today I49.3 - Ventricular premature depolarization Coding Level of Care Code New Pt Level 4 (10920) Complex EM visit Add On G2211 Diagnoses PVCs (premature ventricular contractions) I49.3 CPT Codes EKG - CPT: 68525-Fjeczxkkqmyuxtnmj, Complete ([id number])
[2025-01-04 09:01] VITALS: BP 124/78; PULSE 70; BMI 32.6
--- OUTSIDE RECORDS SUMMARY | 2025-01-04 09:26 | XMS_ITS | Encounter Summary ---
Author Organization [employer] Address [address] [facility] 7t [place] [address] Care Team Providers Care Seal Mixer Name Role Phone Odalys Amador MD Primary Care Provider + Reason for Visit * Reason Onset Date Comments Med Refill 05/15/2024 Encounter Details Date Type Department Care Team ([facility] st Contact Info) Description 05/15/2024 Refill [facility] [address] [place] [address] Odalys Amador MD [address] [place] [address] Primary insomnia Social History Tobacco Use Types [...] documented as of this encounter Care Teams Seal Mixer Relationship Specialty Start Date End Date Odalys Amador MD [address] [place] [address] PCP - General Family Medicine 06/24/16 documented as of this encounter
== END 2025-01-04 09:22 | disposition home or self-care (01) ==
LOC: HO.HCS 08:55
PROVIDERS: PCP Internal Medicine; Visit Provider Internal Medicine Cardiovascular Disease
DX: I49.3 Ventricular premature depolarization (principal); R94.31 Abnormal electrocardiogram [ECG] [EKG]
CPT/HCPCS: 93010; 99214

== ENCOUNTER → 2025-01-04 08:54 | Outpatient (BNVA) | payer MEDICAID, SELFPAY | PROVIDERS: PCP Internal Medicine; Visit Provider Internal Medicine Cardiovascular Disease | DX: I49.3 Ventricular premature depolarization (principal) | CPT/HCPCS: 93005; 99212 ==

== ENCOUNTER 2025-07-05 18:01 | Emergency (ER) | payer MEDICAID, SELFPAY ==
--- NOTE | ~2025-07-05 | CT_ITS ---
CLINICAL HISTORY: headache CT head without contrast Comparison: None Findings: No intracranial mass, midline shift, hydrocephalus, or acute hemorrhage. No CT evidence of acute ischemia. Visualized paranasal sinuses and mastoid air cells normal. Orbits unremarkable. No skull fracture Impression: 1. No acute intracranial abnormalities. This document has been electronically signed by: Andrea Tavarez MD on 07/05/2025 20:46:19
[2025-07-05 18:28] VITALS: BP 121/57; PULSE 75; RESP 16; TEMP 36.8; O2SAT 95; BMI 33.9
--- NOTE | 2025-07-05 18:30 | ED.HA ---
HPI - Headache General Chief Complaint: Headache Stated Complaint: Migraines burning eye sensation Time Seen by Provider: 07/05/25 20:37 Source: patient, RN notes reviewed and old records reviewed Mode of arrival: ambulatory Limitations: no limitations History of Present Illness ED Provider: Mike SAUCEDO Narrative: 39-year-old female with past medical history significant for migraine headaches presents for evaluation of a headache. The patient reports she developed a headache to the top of her head around 11:30 a.m. this morning She tried Tylenol when her symptoms started without any improvement. A couple hours later she tried sumatriptan again without improvement. Denies any blurry vision but she does reports sensitivity to light. She denies any trauma to the head or neck. She is not anticoagulated. No other complaints or concerns at this time Related Data Home Medications ?Medication ?Instructions ?Recorded ?Confirmed sertraline 50 mg tablet 50 mg PO DAILY 09/13/24 01/04/25 trazodone 50 mg tablet 50 mg PO BEDTIME 09/13/24 01/04/25 Previous Rx's ?Medication ?Instructions ?Recorded cetirizine 10 mg tablet 10 mg PO DAILY PRN allergy 06/29/23 symptoms #30 tabs qxxvppyzov-ubaxgorqrygnw-bianmljj 1 cap PO Q4-6H PRN headache #12 07/06/25 50 mg-300 mg-40 mg capsule caps (Fioricet) Allergies Allergy/AdvReac Type Severity Reaction Status Date / Time pineapple Allergy Itching Verified 07/05/25 18:31 Review of Systems Constitutional: Constitutional: Denies body ache(s), Denies chills, Denies fever(s), Denies frequent falls and Reports headache(s) Eyes: Eyes: Denies blind spots, Denies blurry vision, Denies seeing flashes and Reports photophobia ENT: Reports headache(s) Cardiovascular: Cardiovascular: Denies chest pain and Denies dyspnea on exertion Respiratory: Respiratory: Denies cough and Denies dyspnea on exertion Gastrointestinal: Gastrointestinal: Denies abdominal pain, Denies nausea and Denies vomiting Musculoskeletal: Musculoskeletal: Denies back pain Integumentary/Breasts: Skin/Breast: Denies rash Neurologic: Denies frequent falls and Reports headache(s) [facility] Past Medical History Medical History Right carpal tunnel syndrome No known health problems Surgical History Hx of cholecystectomy Social History Social History Are you a primary managed care analyst to a significant other at home: No Do you presently have visiting nurse or other home services: No Patient Tobacco Use Status: Never used Tobacco Advance Directives: No Advance Directives Information Provided: Yes Current occupational status: employed 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 Physical Exam Vital Signs: Vital Signs: Last Vital Signs Temp 97.9 F 07/05/25 22:00 Pulse 67 07/05/25 22:00 Resp 16 07/05/25 22:00 BP 108/56 L 07/05/25 22:00 Pulse Ox 98 07/05/25 22:00 O2 Del Method Room Air 07/05/25 22:00 BMI result Body Mass Index 33.9 Const: General: healthy appearing, comfortable, no acute distress, alert and awake Nutritional Appearance: well nourished Orientation/consciousness: patient oriented x3 HEENT: Head: Yes normocephalic and Yes atraumatic Eyes: Eyelids: Yes eyelids normal Conjunctivae: conjunctivae normal Sclerae: sclerae normal Corneas: corneas normal Pupils: Equal, round and reactive pupils present EOM: EOMs intact bilaterally Direct Ophthalmoscopy: photophobia Neck: Neck: Yes full ROM Resp: Effort & Inspection: normal respiratory effort, able to speak in complete sentences and not labored Cardio: Rate: regular rate Rhythm: regular rhythm GI: Inspection: No distended Palpation (GI): Soft to palpation, not firm, nontender, no guarding and not rigid Skin: General skin exam: elasticity normal Neuro: General: patient oriented x3 Cranial nerves: Yes CN's II-XII intact bilaterally, Yes Equal, round and reactive pupils present and Yes Bilaterally intact EOM present Cognition (Neuro): normal cognition Course Course Course Narrative: This is an RME: Additional HPI, ROS, PE not included below will be deferred to primary provider. RME assessment and note performed by: Sabrina Conklin PA-C This is a 42-olpt-uiy-female who presents to the ER with complaints of headache. Patient reports that she has a history of migraines however this is worse than her usual. Endorsing photophobia and phonophobia. Took Tylenol at noon with no relief. Plan: CT, viral swabs Reevaluation(s) Reevaluation #1: Patient reports feeling better after treatment, she is stable for discharge. CT scan does not show any concerning findings Time: 00:14 Medications Administered Discontinued Medications Generic Name Dose Route Start Last Admin Trade Name Cheryle PRN Reason Stop Dose Admin Diphenhydramine HCl 25 mg 07/05/25 20:53 07/05/25 21:30 Diphenhydramine Hcl 50 Mg/Ml Vial IVPUSH 07/05/25 20:54 25 mg ONCE ONE Administration Sodium Chloride 1,000 mls @ 999 mls/hr 07/05/25 21:00 07/05/25 22:53 Ns IV 07/05/25 22:00 Infused .Q1H1M ASH Infusion Ketorolac Tromethamine 15 mg 07/05/25 20:53 07/05/25 21:31 Ketorolac Tromethamine 15 Mg/Ml Vial IVPUSH 07/05/25 20:54 15 mg ONCE ONE Administration Metoclopramide HCl 10 mg 07/05/25 20:53 07/05/25 21:30 Metoclopramide Hcl 10 Mg/2 Ml Vial IVPUSH 07/05/25 20:54 10 mg ONCE ONE Administration Medical Decision Making Medical Decision Making MDM Narrative: 39-year-old female with a history of migraine headaches presents for evaluation of a headache. She states that her symptoms seem worse than her typical migraine because of the pain is worse. She has no neuro deficits on exam, there was no trauma to the head or neck. His CT scan of the brain was ordered in triage that does not show any significant intracranial abnormalities. She is quite well appearing despite her complaints of headache and light sensitivity. We will treat her headache with a migraine cocktail of IV fluids, Reglan, Benadryl and ketorolac. Plan for re-evaluation. I have a low suspicion for infectious cause her symptoms, there was no neck pain or nuchal rigidity. Differential Diagnosis Differential Diagnoses: The differential diagnosis associated with the presentation includes Migraine headache Cluster headaches Tension headache Sinusitis Lab Data Labs: Lab Results 07/05/25 Range/Units 18:54 Influenza Type A (PCR) NEGATIVE (Negative) Influenza Type B (PCR) NEGATIVE (Negative) RSV RNA Qual (PCR) NEGATIVE (Negative) SARS-CoV-2 RNA (RT-PCR) NEGATIVE (Negative) Radiology Impression Discussion of test interpretation with radiology: I have reviewed the radiologist's reading. Radiologist Impression: Findings: No intracranial mass, midline shift, hydrocephalus, or acute hemorrhage. No CT evidence of acute ischemia. Visualized paranasal sinuses and mastoid air cells normal. Orbits unremarkable. No skull fracture Impression: 1. No acute intracranial abnormalities. This document has been electronically signed by: Andrea Tavarez MD on 07/05/2025 20:46:19 Discharge Plan Discharge Clinical Impression: Headache, migraine Patient Disposition: Home, Self-Care Instructions: Migraine Headache (ED) Additional Instructions: Your CT scan did not show any concerning findings. You may use Fioricet as needed for further migraines pain This medication contains Tylenol, you should not take additional Tylenol Follow up with your primary doctor, return for new or worsening symptoms Prescriptions: New bqifhhyzff-agspmxjgwvuyu-aghy [Fioricet] 50-300-40 mg capsule 1 cap PO Q4-6H PRN (Reason: headache) Qty: 12 0RF No Action cetirizine 10 mg tablet 10 mg PO DAILY PRN (Reason: allergy symptoms) Qty: 30 0RF sertraline 50 mg tablet 50 mg PO DAILY trazodone 50 mg tablet 50 mg PO BEDTIME Print Language: Bengali
[2025-07-05 19:35] LABS: Resp Syncy Virus RNA Qual PCR NEGATIVE (Negative); SARS COV2 PCR INHOUSE NEGATIVE (Negative)
--- OUTSIDE RECORDS SUMMARY | 2025-07-05 20:42 | XMS_ITS | Encounter Summary ---
Author Organization [employer] Address [address] [facility] 7t [place] [address] Care Team Providers Care Gas Plant Repairer Name Role Phone Odalys Amador MD Primary Care Provider + Reason for Visit * Reason Comments Med Refill Encounter Details Date Type Department Care Team ([facility] st Contact Info) Description 01/12/2024 Refill [facility] [address] [place] [address] Jj Adler MD [address] [place] [address] Social History Tobacco Use Types Packs/Day Years [...] t he electric, gas, oil or water [employer] threatened to shut off services in your [...] as of this encounter Plan of Treatment Upcoming Encounters Date Type Department Care Team (Late st Contact Info) Description 07/09/2025 11:00 AM EST Telemedicine [facility] [address] [place] [phone] Salina Livingston MD [address] [place] [address] documented as of this encounter Visit Diagnoses Not on filedocumented in this encounter Additional Health Concerns Assessment Noted Time PHQ-9 Depression Total Score: 3 01/30/20 23 10:44 AM EDT documented as of this encounter Care Teams Gas Plant Repairer Relationship Specialty Start Date End Date Odalys Amador MD [address] [place] [phone] PCP - General Family Medicine 06/24/16 documented as of this encounter
--- OUTSIDE RECORDS SUMMARY | 2025-07-05 20:42 | XMS_ITS | Clinical Summary ---
Author Organization [employer] Address 75 [facility] 7t [place] [address] Care Team Providers Care Mechanical Assembler Name Role Phone Odalys Amador MD Primary Care Provider + Allergies Active Allergy Reactions Criticality Noted Date Comments Pineapple Rash Low 07/05/2024 Medications docusate sodium (Colace) 100 MG capsule TAKE 1 CAPSULE BY MOUTH TWICE A DAY NEEDED 06/03/20 22 Active hydrOXYzine HCl (Atarax) 25 MG tablet TAKE 1 TABLET BY ORAL ROUTE 3 TIMES EVERY DAY NEEDED FOR ANXIETY 30 tablet 5 09/10/19 24 Active cetirizine (ZyrTEC) 10 MG tablet TAKE 1 TABLET (10 MG) BY MOUTH ONCE PER DAY. 90 tablet 02/11/20 24 Active ferrous sulfate (Fe Tabs) 325 (65 Fe) MG EC tabletIndicatio ns:Microcytic anemia Take 1 tablet (325 mg) by mouth with breakfast. Do not crush, chew, or split. 30 tablet 11 07/25/19 25 026 Active meloxicam (Mobic) 15 MG tabletIndicatio ns:Tension-type headache, not intractable, unspecified chronicity pattern TAKE 1 TABLET BY MOUTH EVERY DAY 30 tablet 3 04/10/20 25 Active traZODone (Desyrel) 50 MG tabletIndicatio ns:Primary insomnia TAKE 1 TABLET BY MOUTH EVERYDAY AT BEDTIME 90 tablet 05/01/20 25 Active topiramate (Topamax) 25 MG tabletIndicatio ns:Migraine without aura and without status migrainosus, not intractable Take 1 tablet (25 mg) by mouth at bedtime. 30 tablet 1 05/29/20 25 026 Active SUMAtriptan (Imitrex) 25 MG tabletIndicatio ns:Migraine without aura and without status migrainosus, not intractable TAKE 1 TAB ONCE NEEDED FOR MIGRAINE, MAY REPEAT ONCE IN 2 HOURS IF NO RELIEF. MAX 2 TABS/24 HRS 9 tablet 06/25/20 25 Active sertraline (Zoloft) 50 MG tablet TAKE 1 TABLET BY MOUTH EVERY DAY 90 tablet 1 06/26/20 25 Active sertraline (Zoloft) 50 MG tablet Take 1 tablet (50 mg) by mouth Once per day. 90 tablet 1 11/22/19 25 025 Discontinued SUMAtriptan (Imitrex) 25 MG tabletIndicatio ns:Migraine without aura and without status migrainosus, not intractable Take 1 tablet (25 mg) by mouth 1 (one) time if needed for migraine for up to 1 dose. May repeat dose once in 2 hours if no relief. Do not exceed 2 doses in 24 hours. 9 tablet 05/29/20 25 025 Discontinued Active Problems Problem Noted Date Diagnosed Date Strain of left knee 05/29/2025 Right carpal tunnel syndrome 05/29/2025 Knee buckling 05/29/2025 Facial cellulitis 05/29/2025 Contact dermatitis 05/29/2025 Migraine without aura and wi thout status migrainosus, not intractable 05/29/2025 Assessment & Plan (05/29/2025 1:53 PM EST): I advise to avoid migraine triggers like red wine, chocolate, cheese, strong perfumes I will start patient on Topamax 25 mg at bedtime I will prescribe for patient sumatriptan 25 mg to be taken as needed I will follow-up with patient in about 4 weeks Encounter for cervical Pap smear with pelvic [...] 5, pt agreed to start psychotherapy. 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 [facility] to make [facility] appointment with [...] EDT): Pt needs to schedule appointment with [facility] PT, information given to pt again Counseled [...] Encounters Date Type Department Care Team Description 06/26/2025 Refill [facility] MEDICINE [address] [place] [address] Odalys Amador MD 06/25/2025 Refill [facility] MEDICINE [address] [place] [address] Salina Livingston MD Migraine without aura and without status migrainosus, not intractable 05/29/2025 1:30 PM EST Telemedicine [facility] [address] [facility] [place] [address] Salina Livingston MD Migraine without aura and without status migrainosus, not intractable (Primary Dx) 05/29/2025 Travel 05/28/2025 Telephone [facility] [address] [facility] [place] [address] Odalys Amador MD Medication Question; Nurse Triage 04/30/2025 Refill [facility] MEDICINE [address] [place] [address] Odalys Amador MD Primary insomnia 04/20/2025 Telephone [facility] MEDICINE [address] [place] [address] Odalys Amador MD Nurse Triage 04/09/2025 Refill [facility] MEDICINE [address] [place] [address] Odalys Amador MD Tension-type headache, not intractable, unspecified chronicity pattern from Last 3 Months Immunizations Immunization Administration Dates Next Due Hep B, adult [...] 70 07/24/2024 5:33 PM EST Temperature 36.8 C (98.3 F) 07/24/2024 5:33 PM EST Respiratory Rate 20 07/05/2024 5:21 PM EST Oxygen Saturation 100% 07/24/2024 5:33 PM EST Inhaled Oxygen Concentration - - Weight 89.3 kg (196 lb 12.8 oz) 07/05/2024 5:21 PM EST Height 165.1 cm (5' 5 ) 07/05/2024 5:21 PM EST Body Mass Index 32.75 07/05/2024 5:21 PM EST Plan of Treatment Upcoming Encounters Date Type Department Care Team (Late st Contact Info) Description 07/09/2025 11:00 AM EST Telemedicine [facility] MEDICINE [address] [place], [place] [phone] Salina Livingston MD [address] [place] [address] Health Maintenance Due Date Last Done Comments Alcohol/Substance Use Screening 1999 Family Planning (PISQ) 09/17/2002 HPV Vaccines (1 - 3-dose series) 09/17/2002 SDOH Screening 02/14/2025 02/15/2024 Depression Screening 02/24/2025 02/25/2024, 02/25/20 24 COVID-19 Vaccine ( season) 2025 07/08/2021, 11/05/2020, 10/08/2020 Disability Screening 05/29/2026 05/29/2025 Tobacco Screening 05/29/2026 05/29/2025 DTaP/Tdap/Td Vaccines (2 - Td or Tdap) 11/18/2026 11/18/2016 Cervical Cancer Screening 05/15/2029 HPV/Cotest 05/15/2029 05/15/2024, 06/05/2021 Pap Smear 05/15/2029 05/15/2024, 06/05/2021 Zoster Vaccines (1 of 2) 09/17/2037 RSV Patients and Patients Aged 60 years or older (1 - 1-dose 75+ series) 09/17/2062 Hepatitis C Screening Completed 10/16/2021 Hepatitis B Vaccines Completed 05/15/2024, 11/28/2021, 10/23/2021 HIV Screening Completed 07/25/2024 Influenza Vaccine Completed 04/26/2025, , 04/21/2023, Additional history exists HIB Vaccines Aged Out No longer eligi ble based on patient's age to complete this topic Hepatitis A Vaccines Aged Out No long er eligible based on patient's age to complete this topic IPV Vaccines Aged Out No longer eligi ble based on patient's age to complete this topic Meningococcal B Vaccine Aged Out No l onger eligible based on patient's age to complete this topic Meningococcal Vaccine Aged Out No conrad elvia eligible based on patient's age to complete this topic Pneumococcal Vaccine: Pediatrics (0 to 5 Years) and At-Risk Patients (6 to 49) Years Aged Out No longer eligible based on patient's age to complete this topic RSV under 20 months Aged Out No longe r eligible based on patient's age to complete this topic Rotavirus Vaccines Aged Out No longer eligible based on patient's age to complete this topic Procedures Procedure Name Priority Date/Time Associated Diagnosis Comments HIV 1/2 ANTIGEN/ANTIBODY, FOURTH GENERATION W/RFL Routine 07/25/2024 10:28 AM EST Screening examination for STD (sexually transmitted disease) HPV MRNA E6/E7 REFLEX TO HPV 16, 18/45 Routine 05/15/2024 2:20 PM EDT Encounter for cervical Pap smear with pelvic exam [facility]INPREP IMAGING SYSTEM PAP Routine 05/15/2024 2:20 PM EDT ZZZ HISTORICAL HEPATITIS C AB W/REFL TO HCV RNA, QN, PCR Routine 10/16/2021 10:22 AM EDT from Last 3 Months or Most Recently Relevant to Health Maintenance Results * HIV-1/2 Antigen and Antibodies, Fourth Generation, with Reflexes (07/25/2024 10:28 AM EST) HIV AB/AG Nonreactive Nonreactive [facility] Comment:HIV-1 p24 Ag and/or HIV-1/HIV-2 Ab not detected.A test result that is nonreactive does not exclude thepossibility of exposure to or infection with HIV-1 and/orHIV-2. Nonreactive results in this assay for individualswith prior exposure to HIV-1 and/or HIV-2 may be due toantigen and antibody levels that are below the limit ofdetection of this assay.The [employer] HIV Ag/Ab Combo assay result andsupplemental assay results should be interpreted inconjunction with the patient's clinical presentation,history and other laboratory results. If the results areinconsistent with clinical evidence, additional testing issuggested to confirm the result. Blood Venous blood specimen / Unknown 07/25/2024 10:28 AM EST 07/25/2024 11:39 AM EST us Odalys Amador MD LAB BLOOD ORDERABLES Fin al Result [facility] [address] [place] [address] [phone] * ThinPrep Imaging System Pap (05/15/2024 2:20 PM EDT) Pathologist [facility] SOURCE: SEE NOTE [facility] Comment:Cervix Report Status: [facility] Clinical Information: SEE NOTE [facility] Comment:None given LMP: SEE NOTE [facility] Comment:NONE GIVEN Prev. PAP: SEE NOTE [facility] Comment:NONE GIVEN Prev. BX: SEE NOTE [facility] Comment:NONE GIVEN Statement Of Adequacy: SEE NOTE [facility] Comment:Satisfactory for tammie luation.Endocervical/transformation zone componentpresent. General Categorization: [facility] Interpretation/Result: SEE NOTE [facility] Comment:Cytology Results: Ne gative for intraepitheliallesion or malignancy. Cytology Comment SEE NOTE [facility] Comment:This Pap test has be en evaluated with computerassisted technology. Brim Pouncer Machine Operator: SEE NOTE [facility] Comment:CMG, CT(ASCP)CT scre ening location: [address] [address] Review Brim Pouncer Machine Operator: [facility] Pathologist [facility] PAP Infection SEE NOTE [facility] Comment:Shift in vaginal juan ra suggestive of bacterialvaginosis. See Note SEE NOTE [facility] Comment:EXPLANATORY NOTE:The Pap is a screening test for cervical cancer. It isnot a diagnostic test and is subject to false negativeand false positive results. It is most reliable when asatisfactory sample, regularly obtained, is submittedwith relevant clinical findings and history, and whenthe Pap result is evaluated along with historic andcurrent clinical information.THIS TEST WAS PERFORMED AT:[facility] [address] [id number] CHAUHAN MD 05/15/2024 2:20 PM EDT 05/15/2024 6:47 PM EDT Narrative [facility] - 05/19/2024 11:08 AM EDT SEE SCANNED RESULTS IN EMR Odalys Amador MD LAB PATHOLOGY ORDERABLES Final Result [facility] [address] [place] [address] [phone] * HPV mRNA E6/E7 w/Reflex to HPV Genotypes 16, 18/45 (05/15/2024 2:20 PM EDT) HPV nRNA E6/E7 Not Detected [facility] Comment:REFERENCE RANGE: Not DetectedMethodology: Manager Concrete-Mediated AmplificationThis assay detects E6/E7 viral messenger RNA (mRNA) from 14high- risk HPV types(16,18,31,33,35,39,45,51,52,56,58,59,66,68).Cervical sources are required for HPV testing.If a vaginal source from a patient who has had atotal hysterectomy with removal of cervix wassubmitted, please contact the testing laboratoryfor alternative testing options.For additional information, please refer [email or web address]/faq/YDM496d8(This link if provided for information/educational purposes only.)THIS TEST PERFORMED AT:[employer] [address] [phone] DIRECTOR: TINA CAHUHAN MD HPV mRNA E6/E7 [facility] HPV 16 RNA [facility] HPV 18/45 RNA [facility] Vaginal Fluid Cervix uteri structure / Unknown 05/15/2024 2:20 PM EDT 05/15/2024 6:47 PM EDT Narrative [facility] - 05/19/2024 11:13 AM EDT Collection Date: [id number] by: DANIELLE Villafuerte: Cervix Odalys Amador MD LAB CYTOLOGY ORDERABLES Final Result Performing Organization Address [facility] Co de Phone Number [facility] [address] [place] [address] [phone] * HEPATITIS C AB W/REFL TO HCV RNA, QN, PCR (10/16/2021 10:22 AM EDT) HEPATITIS C ANTIBODY NON-REACT JAMMIE NON-REACT J[facility]MIE [facility] INDEX 0.01 <1.00 [facility] Comment: HCV antibody was non-reactive. There is no laboratory evidence of HCV infection. In most cases, no further action is required. However, if recent HCV exposure is suspected, a test for HCV RNA (test code 63837) is suggested. For additional information please refer to http://K[employer]Book[employer]/faq/ZGT34x8 (This link is being provided for informational/ educational purposes only.) 10/16/2021 10:2 2 AM EDT Odalys Amador MD HISTORICAL/NON ORDERABLE LABS Final Result Performing Organization Address City/[facility]/ZIP Co de Phone Number [facility] [address] [phone], from Last 3 Months or Most Recently Relevant to Health Maintenance [place] [address] [place] [address] C3 Care Teams Mechanical Assembler Relationship Specialty Start Date End Date Odalys Amador MD [address] [place] [phone] PCP - General Family Medicine 06/24/16
--- OUTSIDE RECORDS SUMMARY | 2025-07-05 20:42 | XMS_ITS | Encounter Summary ---
Author Organization [employer] Address 75 [facility] 7t [place] [address] Care Team Providers Care Pile Driving Supervisor Name Role Phone Odalys Amador MD Primary Care Provider + Reason for Visit * Reason Onset Date Comments Med Refill 05/15/2024 Encounter Details Date Type Department Care Team ([facility] st Contact Info) Description 05/15/2024 Refill [facility] MEDICINE [address] [place] [address] Odalys Amador MD [address] [place] [address] Primary insomnia Social History Tobacco Use Types [...] Info) Description 07/09/2025 11:00 AM EST Telemedicine [facility] MEDICINE [address] [place] [address] Salina Livingston MD [address] [place] [address] documented as of this encounter Visit Diagnoses Diagnosis Primary insomnia Persistent disorder of initiating or maintaining sleep documented in this encounter Additional Health Concerns Assessment Noted Time PHQ-9 Depression Total Score: 5 02/25/20 24 10:10 AM EDT documented as of this encounter Care Teams Pile Driving Supervisor Relationship Specialty Start Date End Date Odalys Amador MD [address] [place] [phone] PCP - General Family Medicine 06/24/16 documented as of this encounter
--- OUTSIDE RECORDS SUMMARY | 2025-07-05 20:42 | XMS_ITS | Clinical Summary ---
Author Organization [facility] Prior to 12/16/[address] [place] [address] Care Team Providers Care Life Agent Name Role Phone Unavailable Primary Care Provider Unavailabl e Social History Tobacco Use Types Packs/Day Years Used Date Smoking Tobacco: Never Assessed Sex and Gender Information Value Date Recorded Sex Assigned at Not on file Gender Identity Not on file Sexual Orientation Not on file Plan of Treatment Not on file
--- OUTSIDE RECORDS SUMMARY | 2025-07-05 20:42 | XMS_ITS | Encounter Summary ---
Author Organization [employer] Address 75 [facility] 7t [place] [address] Care Team Providers Care Dirt Supervisor Name Role Phone Odalys Amador MD Primary Care Provider + Reason for Visit * Reason Onset Date Comments Call Back Request 08/14/2024 Results 08/14/2024 Encounter Details Date Type Department Care Team ([facility] st Contact Info) Description 08/14/2024 Telephone [facility] MEDICINE [address] [place] [address] Odalys Amador MD [address] [place], [place] [phone] Call Back Request; Results Social History Tobacco [...] encounter Miscellaneous Notes * Telephone Encounter - Isissusan Daniel - 08/14/2024 11:48 AM EST Tc from pt notifying she had a Holter monitor for 48 hours , pt is requesting results as no one hadcalled her in regards any results. [phone] documented in this encounter Plan of Treatment Upcoming Encounters Date Type Department Care Team (Late st Contact Info) Description 07/09/2025 11:00 AM EST Telemedicine [facility] MEDICINE [address] [place] [address] Salina Livingston MD [address] [place] [address] documented as of this encounter Visit Diagnoses Not on filedocumented in this encounter Additional Health Concerns Assessment Noted Time PHQ-9 Depression Total Score: 5 02/25/20 24 10:10 AM EDT documented as of this encounter Care Teams Dirt Supervisor Relationship Specialty Start Date End Date Odalys Amador MD [address] [place] [phone] PCP - General Family Medicine 06/24/16 documented as of this encounter
--- OUTSIDE RECORDS SUMMARY | 2025-07-05 20:42 | XMS_ITS | Encounter Summary ---
Author Organization [employer] Address 75 [facility] 7t [place] [address] Care Team Providers Care Financial Report Service Sales Agent Name Role Phone Odalys Amador MD Primary Care Provider + Reason for Visit * Reason Onset Date Comments Med Refill 06/28/2024 Encounter Details Date Type Department Care Team ([facility] st Contact Info) Description 06/28/2024 Refill [facility] MEDICINE [address] [place] [address] Odalys Amador MD [address] [place] [address] Primary insomnia Social History Tobacco Use Types [...] Info) Description 07/09/2025 11:00 AM EST Telemedicine [facility] MEDICINE [address] [place] [address] Salina Livingston MD [address] [place] [address] documented as of this encounter Visit Diagnoses Diagnosis Primary insomnia Persistent disorder of initiating or maintaining sleep documented in this encounter Additional Health Concerns Assessment Noted Time PHQ-9 Depression Total Score: 5 02/25/20 24 10:10 AM EDT documented as of this encounter Care Teams Financial Report Service Sales Agent Relationship Specialty Start Date End Date Odalys Amador MD [address] [place] [phone] PCP - General Family Medicine 06/24/16 documented as of this encounter
--- OUTSIDE RECORDS SUMMARY | 2025-07-05 20:42 | XMS_ITS | Encounter Summary ---
Author Organization [employer] Address 75 [facility] 7t [place] [address] Care Team Providers Care Broadband Engineer Name Role Phone Odalys Amador MD Primary Care Provider + Reason for Visit * Reason Comments Med Refill Encounter Details Date Type Department Care Team ([facility] Contact Info) Description 05/02/2024 Refill [facility] MEDICINE [address] [place] [address] Odalys Amador MD [address] [place] [address] Primary insomnia Social History Tobacco Use Types [...] 07/09/2025 11:00 AM EST Telemedicine [facility] MEDICINE [address] [place] [phone] Salina Livingston MD [address] [place] [address] documented as of this encounter Visit Diagnoses Diagnosis Primary insomnia Persistent disorder of initiating or maintaining sleep documented in this encounter Additional Health Concerns Assessment Noted Time PHQ-9 Depression Total Score: 5 02/25/20 24 10:10 AM EDT documented as of this encounter Care Teams Broadband Engineer Relationship Specialty Start Date End Date Odalys Amador MD [address] [place] [address] PCP - General Family Medicine 06/24/16 documented as of this encounter
--- OUTSIDE RECORDS SUMMARY | 2025-07-05 20:42 | XMS_ITS | Encounter Summary ---
Author Organization [employer] Address 75 [facility] 7t [place] [address] Care Team Providers Care Delicatessen Department Manager Name Role Phone Odalys Amador MD Primary Care Provider + Encounter Details Date Type Department Care Team (Late st Contact Info) Description 07/25/2024 Orders Only [facility] [address] [place], [place] [phone] Nicci Hardy MD [address] [place] [address] Microcytic anemia (Primary Dx) Social History Tobacco [...] Info) Description 07/09/2025 11:00 AM EST Telemedicine [facility] MEDICINE [address] [place] [phone] Salina Livingston MD [address] [place] [address] documented as of this encounter Visit Diagnoses Diagnosis Microcytic anemia- Primary Unspecified iron deficiency anemia documented in this encounter Additional Health Concerns Assessment Noted Time PHQ-9 Depression Total Score: 5 02/25/20 24 10:10 AM EDT documented as of this encounter Care Teams Delicatessen Department Manager Relationship Specialty Start Date End Date Odalys Amador MD [address] [place] [phone] PCP - General Family Medicine 06/24/16 documented as of this encounter
--- OUTSIDE RECORDS SUMMARY | 2025-07-05 20:42 | XMS_ITS | Clinical Summary ---
Author Organization [facility] Address [address] [place] [address] Care Team Providers Care Linotyper Name Role Phone Unavailable Primary Care Provider Unavailabl e Social History Tobacco Use Types Packs/Day Years Used Date Smoking Tobacco: Never Assessed Comments Unknown Sex and Gender Information Value Date Recorded Sex Assigned at Not on file Legal Sex Female 12:38 PM EDT Gender Identity Not on file Sexual Orientation [...] - 19+ 3-dose series) 09/17/2006 COVID-19 Vaccine (2024-2 6 season) 2025 HPV Vaccines (No Doses Required) Completed Pneumococcal Vaccine: Pediat diogo (0-5 Years) and At-Risk Patients (6 to 49 Years) Aged Out No longer eligible b ased on patient's age to complete this topic
[2025-07-05 22:00] VITALS: BP 108/56; PULSE 67; RESP 16; TEMP 36.6; O2SAT 98
[2025-07-06 01:10] VITALS: BP 99/51; PULSE 73; RESP 14; TEMP 36.3; O2SAT 96
== END 2025-07-06 01:11 | disposition home or self-care (01) ==
PROVIDERS: Physician Assistant Medical; Emergency Provider Emergency Medicine Emergency Medical Services; PCP Internal Medicine
DX: G43.909 Migraine, unspecified, not intractable, without status migrainosus (principal); Z03.818 Encounter for observation for suspected exposure to other biological agents ruled out
CPT/HCPCS: 70450; 87637; 96361; 96374; 96375; 99284; J1200; J1885; J2765

== ENCOUNTER → 2025-07-05 18:31 | Outpatient (BNV) | payer MEDICAID, SELFPAY | PROVIDERS: PCP Internal Medicine; Visit Provider Radiology Diagnostic Radiology | DX: R51.9 Headache, unspecified (principal) | CPT/HCPCS: 70450 ==